=== PATIENT | female | born 1940 | race Caucasian/White ===

== ENCOUNTER 2017-10-26 17:51 | Inpatient (IN) | payer MEDICARE, OTHER ==
[~2017-10-26] VITALS: Ht 167.6 cm; Wt 74.4 kg
[~2017-10-26 17:51] MED LIST: AMLODIPINE; AUGMENTIN 875875 MG PO; ERYTHROMYCIN E3.5 G2; TOBREX5 ML OP; ZOLOFT
[2017-10-26 17:55] VITALS: BP 128/73
[2017-10-26] MEDS ORDERED: ASPIR 8181 MG PO (18:00)
[2017-10-26] MEDS ORDERED: WELCHOL 625 MG625 M1 PO (18:00)
[2017-10-26] MEDS ORDERED: DIOVAN 80 MG TA80 M1 PO (18:00)
[2017-10-26] MEDS ORDERED: PLAVIX 75 MG TA75 M1 PO (18:01)
[2017-10-26] MEDS ORDERED: SERTRALINE HCL50 MG PO (18:01)
[2017-10-26] MEDS ORDERED: LASIX 40 MG TAB40 M2 PO (18:01)
[2017-10-26] MEDS ORDERED: XANAX 0.25 MG0.25 MG PO (18:02)
[2017-10-26] MEDS ORDERED: CARVEDILOL12.5 MG PO (18:02)
[2017-10-26] MEDS ORDERED: NORVASC5 M1 PO (18:03)
[2017-10-26] MEDS ORDERED: LIVALO4 MG PO (18:04)
[2017-10-26 18:13] LABS: HEMATOCRIT 37.9 % (37.0-47.0); HEMOGLOBIN 12.1 gm/dL (12.0-15.0); MCH 27.3 pg (26.0-34.0); MCHC 31.9 g/dL (28.0-37.0); MCV 85.7 fL (80.0-100.0); MPV 9.2 fl. (7.2-11.1); NUCLEATED RBCS 0 /100WBC; PLATELET COUNT* 307 thou/uL (150-400); RBC 4.42 mil/uL (4.20-5.00); RDW-CV 16.8 % (10.5-14.5); WBC 12.6 thou/uL (4.0-11.0)
[2017-10-26 18:20] LABS: CALCIUM 8.5 mg/dL (8.5-10.1); CREATININE 1.5 mg/dL (0.6-1.3); POTASSIUM 3.9 mmol/L (3.5-5.1)
[2017-10-26 18:25] LABS: ALBUMIN 3.6 g/dL (3.4-5.0); TOTAL BILIRUBIN 0.4 mg/dL (<0.1-1.0)
--- NOTE | 2017-10-26 18:25 | NUR ---
DR BUTT IN ROOM AT THIS TIME W/ RN ATTEMPTING CENTRAL LINE.
[2017-10-26 19:04] LABS: HCO3 23.2 mmol/L (22.0-26.0); PCO2 45.8 mmHg (35.0-45.0); PO2 87.3 mmHg (75.0-100.0); pH 7.322 (7.340-7.450)
[2017-10-26 19:51] LABS: ABSOLUTE BASOPHILS 0.1 thou/uL (0.0-0.2); ABSOLUTE EOSINOPHILS 1.6 thou/uL (0.0-0.7); ABSOLUTE LYMPHOCYTES 1.5 thou/uL (0.8-5.3); ABSOLUTE MONOCYTES 0.8 thou/uL (0.0-1.2); ABSOLUTE NEUTROPHILS 8.6 thou/uL (1.6-8.1)
[2017-10-26 19:52] LABS: OVALOCYTES Occasional; PLATELET ESTIMATE ADEQUATE
[2017-10-26 20:50] VITALS: BP 187/98
[2017-10-26 21:09] VITALS: BP 153/81
[2017-10-26 22:00] VITALS: BP 135/68
[2017-10-26 23:00] VITALS: BP 146/85
[2017-10-26 23:30] LABS: URINE BILIRUBIN NEGATIVE (Negative); URINE BLOOD NEGATIVE (Negative); URINE CLARITY CLEAR; URINE COLOR YELLOW; URINE GLUCOSE-RANDOM NEGATIVE (Negative); URINE KETONES NEGATIVE (Negative); URINE LEUKOCYTES-REFLEX NEGATIVE (Negative); URINE NITRITE-REFLEX NEGATIVE (Negative); URINE PROTEIN 2+ (Negative); URINE SPECIFIC GRAVITY >= 1.030 (1.005-1.030); URINE UROBILINOGEN 0.2 E.U./dl (0.2-1.0)
[2017-10-26 23:45] LABS: BACTERIA-REFLEX >30 Many /HPF (None Seen); CELLULAR CASTS 0-3 Few /LPF (None Seen); COARSE GRANULAR CASTS 0-3 Few /LPF (None Seen); FINE GRANULAR CASTS 0-3 Few /LPF (None Seen); HYALINE CASTS 0-3 Few /LPF (None Seen); MUCUS 4-6 Moderate strn/LPF (None Seen); SQUAMOUS 0-3 Few /LPF (0-3); TRANSITIONAL EPITHEL CELL 0-3 Few /LPF (None Seen); URINE RBC 3-10 Few /HPF (0-2); URINE WBC-REFLEX 6-15 Few /HPF (0-5); WBC CLUMPS Few (None Seen)
[2017-10-26 23:46] LABS: AMORPHOUS URATES Few /LPF (None Seen)
[2017-10-27] VITALS (16 sets, daily range): BP systolic 108–158; BP diastolic 45–89
--- NOTE | 2017-10-27 03:22 | NUR ---
PT ADMITTED TO ICU BED 3 AT APPROXIMATELY 2100 DUE TO RESPIRATORY FAILURE. PT ON BIPAP, O2 SAT 99%. PT RECEIVED 2L NS BOLUS ORDERED, IVF INFUSING. PT RECEIVED MORPHINE X2 IN ER FOR CHEST PAIN, INITIAL TROPONIN NEGATIVE. SECOND TROPONIN 0.18, PT RATED CHEST PAIN 4/10 AND DESCRIBED IT "HEAVY". REPEAT EKG OBTAINED AND CALL PLACED TO DR PILLAI. PER HIS REQUEST A PHOTO OF EKG WAS SENT TO HIM FOR HIS REVIEW (WITH ALL PT IDENTIFIERS COVERED). PER DR PILLAI EKG INDICATED ISCHEMIC CHANGES, MULTIPLE ORDERS RECEIVED AND IMPLIMENTED. PRN MORPHINE GIVEN ORDERED. LYNCH CATHETER PLACED PER ORDER. PT NPO BUT FREQUENT ORAL CARE WITH SWABS AND LIP BALM PROVIDED. PT STATES THAT SHE AMBULATED INDEPENDENTLY AT HOME WITHOUT USE OF AIDS, FULL ROM OF ALL EXTREMITIES. PT ROLLS HERSELF FROM SIDE TO SIDE IN BED, EVEN WITH BIPAP MASK ON. PT ORIENTED TO ROOM AND CALL LIGHT, VERBALIZED UNDERSTANDING. CALL LIGHT WITHIN REACH.
[2017-10-27 09:00] LABS: ABSOLUTE EOSINOPHILS 0.2 thou/uL (0.0-0.7); ABSOLUTE LYMPHOCYTES 0.6 thou/uL (0.8-5.3); ABSOLUTE MONOCYTES 0.7 thou/uL (0.0-1.2); ABSOLUTE NEUTROPHILS 8.6 thou/uL (1.6-8.1); BASOPHILS 0.4 %; EOSINOPHILS 2.4 %; HEMATOCRIT 29.7 % (37.0-47.0); LYMPHOCYTES 5.5 %; MCH 27.7 pg (26.0-34.0); MCHC 32.8 g/dL (28.0-37.0); MCV 84.3 fL (80.0-100.0); MONOCYTES 6.8 %; NUCLEATED RBCS 0 /100WBC; POLYS 84.9 %; RBC 3.53 mil/uL (4.20-5.00); RDW-CV 16.5 % (10.5-14.5); WBC 10.2 thou/uL (4.0-11.0)
[2017-10-27 09:07] LABS: HEMOGLOBIN 9.8 gm/dL (12.0-15.0); PLATELET COUNT* 163 thou/uL (150-400)
[2017-10-27 09:08] LABS: CALCIUM 7.9 mg/dL (8.5-10.1); CREATININE 1.3 mg/dL (0.6-1.3); MAGNESIUM 1.8 mg/dL (1.8-2.4); POTASSIUM 3.6 mmol/L (3.5-5.1); TROPONIN-I LEVEL 0.21 ng/mL (<0.06)
[2017-10-27 09:13] LABS: APTT 29.7 Seconds (25.0-31.3); INR 1.1
[2017-10-27 09:28] LABS: CHOLESTEROL 125 mg/dL (<200); HDL CHOLESTEROL 48 mg/dL (>40); LDL CHOLESTEROL 59 mg/dL (<100); SERUM ASSESSMENT Clear; TC:HDL 2.6 Ratio (Not establshd); TRIGLYCERIDE 90 mg/dL (<150); VLDL 18 mg/dL (<40)
--- NOTE | 2017-10-27 10:10 | NUR ---
PT TO RESEARCH GENETICIST AROUND 0950 THIS AM. DAUGHTER AT BEDSIDE. NO OTHER CONCERNS AT THIS TIME. CLWR. WCTM.
--- NOTE | 2017-10-27 10:45 | CON ---
[address] [address] CONSULTATION Name: DIGNAKIMANI Tyler Room: [address] IN M.R.#: [id number] Admission: 10/26/17 Attend Phys: Clary Wetzel MD Discharge: Date of : 40 Report #: [id number] THIS REPORT FOR: //name// CC: Jose Wetzel DATE OF SERVICE: 10/27/2017 CHIEF COMPLAINT: Shortness of breath. HISTORY OF PRESENT ILLNESS: The patient is on BiPAP, unable to provide information. A daughter is present and information taken from the current medical records and [facility]. The patient is a 77-year-old female, who according to the daughter, was having more shortness of breath yesterday, she was brought to the Emergency Room. She was found to have EKG changes and an abnormal elevated troponin level. According to the daughter, the patient is a smoker, little bit less than a pack a day and has done so for several years. She does carry a diagnosis of chronic obstructive airways disease, cannot elicit whether the patient is on oxygen therapy or BiPAP therapy at home. Upon arrival from the EMS, she was found to be in distress. She was placed on BiPAP device, transported to the Emergency Room. REVIEW OF SYSTEMS: System review negative other than what is outlined above. She is not having any nausea, vomiting, headache, numbness, tingling, blurred vision, swelling or ankle edema. ALLERGIES: She is ALLERGIC to STATIN DRUGS. PAST MEDICAL HISTORY: Significant for COPD and congestive heart failure. In addition, her other past medical problems consist of coronary artery disease, chronic kidney disease, cholecystectomy, anxiety, depression, history of pulmonary nodules. She has had colon resection and a hysterectomy in the past. MEDICATIONS PRIOR TO ADMISSION: Include carvedilol, amlodipine, Livalo, Zoloft, Lasix, Welchol, aspirin and Diovan. She also uses Apresoline on a p.r.n. basis. FAMILY HISTORY: Noncontributory. SOCIAL HISTORY: She is a smoker as outlined above. PHYSICAL EXAMINATION: VITAL SIGNS: Blood pressure 141/74, respiratory rate 19, pulse rate 82 and regular, temperature 97.5 degrees. Her weight is [address] [place] [address] CONSULTATION Name: KIMANI SAWYER Room: [address]#: [id number] Admission: 10/26/17 Attend Phys: Clary Wetzel MD Discharge: Date of : 40 Report #: [id number] GENERAL APPEARANCE: She is on BiPAP, slightly uncomfortable more and likely as a result of the BiPAP device. She is not in any distress otherwise. Respirations do not appear labored. She is not using accessory muscles. HEAD: Atraumatic. EYES: Pupils are round, equal, reactive. ORAL CAVITY: Moist. No lesions. NECK: No adenopathy. CHEST: Reveals diminished breath sounds throughout, greater on the right than the left. She has crackles in the right base. No rhonchi or wheezes. CARDIOVASCULAR: Regular rhythm, distant heart tones. ABDOMEN: Soft. EXTREMITIES: Negative for edema. No evidence of clubbing. SKIN: Warm and dry. LYMPHATICS: Negative. NEUROLOGIC: Moves all 4 extremities spontaneously. LABORATORY DATA: Sodium 144, potassium 3.6, chloride 110, CO2 of 26, BUN of 18, creatinine 1.3, eGFR of 40. Troponin is 0.21. Her admission troponin was less than 0.06, it has climbed to 0.22 and then 0.21. Hemoglobin and hematocrit of 9.8 and 30 with a white count of 10,000. Arterial blood gas obtained on admission in the Emergency Room revealed a pH of 7.32, pCO2 of 46, pO2 of 87, bicarbonate of 23 while on BiPAP of 16/10, 100% FIO2. Chest x-ray reveals a right lower lobe infiltrate. ASSESSMENT: 1. Acute respiratory failure with hypoxemia. 2. Coronary artery disease. 3. Chest pain. 4. Elevated troponin. 5. Exacerbation of chronic obstructive pulmonary disease. 6. Pneumonia. RECOMMENDATION: The patient is scheduled to undergo cardiac catheterization. There is no reason I see that she could not undergo that. I would continue with aspiration precautions, antibiotic therapy, aerosol treatments. Nicoderm patch may be warranted in view of her smoking history. She has been started on vancomycin and Zosyn as antibiotic coverage. Once patient returns back from the cardiac packing house laborer, we will proceed with rechecking the patient's arterial blood gas while on a nasal cannula. Followup x-ray in the a.m. Urine for antigen studies will be obtained. In addition to the above, she will undergo a respiratory viral panel as well. <ELECTRONICALLY SIGNED> By: Omero Enriquez MD 10/27/17 1045 0955 1027Aljose Enriquez MD /nt
[2017-10-27 11:11] LABS: BE -2.9 mmol/L (-2 to +3); HCO3 22.8 mmol/L (22.0-26.0); PCO2 43.2 mmHg (35.0-45.0); PO2 90.4 mmHg (75.0-100.0)
--- NOTE | 2017-10-27 12:00 | EKG ---
[place] [address] ELECTROCARDIOGRAM REPORT Name: KIMANI SAWYER Room: [address] ADM IN [facility].#: [id number] Admission: 10/26/17 Attend Phys: Clary Wetzel MD Discharge: Date of : 40 Report #: [id number] THIS REPORT FOR: //name// [facility] ED Test Date: 2017-10-26 Test Time: 17:56:29 Pat Name: KIMANI SAWYER Department: Room: [facility] Gender: F Medical Psychotherapist: [facility] : 1940 Requested By: Eufemia Lucio Order Number: [id number] MD: Drew Alvarez Measurements Intervals [place] Rate: 116 P: -88 [place]: 109 QRS: 59 QRSD: 118 T: 230 QT: 350 QTc: 487 Interpretive Statements Sinus or ectopic atrial tachycardia septal q waves ST depression, consider ischemia, diffuse lds No previous ECG available for comparison Electronically Signed On 10-27-2017 12:00:31 SPECIALIST FIELD ENGINEER by Drew Alvarez [email or web address] <ELECTRONICALLY SIGNED> By: Drew Alvarez MD, [facility] 10/27/17 [facility] 175 55 Drew Alvarez MD, [facility] /EPI
--- NOTE | 2017-10-27 12:07 | EKG ---
[place] [address] ELECTROCARDIOGRAM REPORT Name: KIMANI SAWYER Room: [address] ADM IN M.R.#: [id number] Admission: 10/26/17 Attend Phys: Clary Wetzel MD Discharge: Date of : 40 Report #: [id number] THIS REPORT FOR: //name// [facility] Test Date: 2017-10-26 Test Time: 22:31:42 Pat Name: KIMANI SAWYER Department: Room: [address] Gender: F Principal Examiner: Adrián CASTILLO RN : 1940 Requested By: Drew Alvarez Order Number: [id number] Nikita MD: Drew Alvarez Measurements Intervals [place] Rate: 84 P: 0 [place]: 121 QRS: 46 QRSD: 111 T: 217 QT: 389 QTc: 460 Interpretive Statements Sinus rhythm Low voltage, extremity leads ST depression, consider ischemia, lateral lds Minimal ST elevation, anterior leads Electronically Signed On 10-27-2017 12:07:13 CAN CARRIER by Drew Alvarez [email or web address] <ELECTRONICALLY SIGNED> By: Drew Alvarez MD, [facility] 10/27/17 1207 30 30 Drew Alvarez MD, FAC /EPI
--- NOTE | 2017-10-27 12:09 | NUR ---
PT BACK FROM CLOTH BLEACHING SUPERVISOR AROUND 1200. REPORT RECEIVED AT THIS TIME. KELBY. GENEVA.
--- NOTE | 2017-10-27 12:09 | EKG ---
[place] [address] ELECTROCARDIOGRAM REPORT Name: KIMANI SAWYER Room: [address] ADM IN .R.#: [id number] Admission: 10/26/17 Attend Phys: Clary Wetzel MD Discharge: Date of : 40 Report #: [id number] THIS REPORT FOR: //name// [facility] Test Date: 2017-10-27 Test Time: 08:17:36 Pat Name: KIMANI SAWYER Department: Room: [address] Gender: F Orchard Worker: : 1940 Requested By: Drew Alvarez Order Number: [id number] Nikita MD: Drew Alvarez Measurements Intervals [place] Rate: 85 P: -12 [place]: 113 QRS: 35 QRSD: 117 T: 229 QT: 400 QTc: 476 Interpretive Statements Sinus rhythm Borderline short [place] interval Borderline low voltage, extremity leads Repol abnrm, severe global ischemia (LM/MVD) Electronically Signed On 10-27-2017 12:09:21 FIELD IDENTIFICATION SPECIALIST by Drew Alvarez [email or web address] <ELECTRONICALLY SIGNED> By: Drew Alvarez MD, [facility] 10/27/17 1209 6 6 Drew Alvarez MD, [facility] /EPI
--- NOTE | 2017-10-27 12:44 | NUR ---
ATTEMPTED TO REMOVE BIPAP AND PLACE PT ON 4L O2/NC. PT DID NOT TOLERATE. VERY SOA WITH DESATURATION NOTED. TITRATED OXYGEN UP TO MAINTAIN SATS WITHOUT SUCCESS. PLACED PT BACK ON BIPAP. PRN IV ANXIOLYTIC GIVEN TO PROMOTE COMPLIANCE WITH BIPAP.
--- NOTE | 2017-10-27 14:19 | NUR ---
PT NOTED TO CHANGE TELE RHYTHMS AROUND 1300. EKG OBTAINED. CARDIOLOGY NURSE AND DR. PILLAI CONSULTED REGARDING RHYTHM CHANGES. DR. PILLAI CONFIRMED RHYTHM BIGEMENY W/ PAC'S. ALL AIR REMOVED FROM RT RADIAL CLOSURE DEVICE. PT HAS NO SIGNS BLEEDING AT THIS TIME. CLWR. WCTM.
--- NOTE | 2017-10-27 16:39 | EKG ---
[place] [address] ELECTROCARDIOGRAM REPORT Name: KIMANI SAWYER Room: [address] ADM IN M.R.#: [id number] Admission: 10/26/17 Attend Phys: Clary Wetzel MD Discharge: Date of : 40 Report #: [id number] THIS REPORT FOR: //name// [facility] Test Date: 2017-10-27 Test Time: 13:05:26 Pat Name: KIMANI SAWYER Department: Room: [address] Gender: F Curator Of Education: UNK : 1940 Requested By: Drew Alvarez Order Number: [id number] Nikita MD: Drew Alvarez Measurements Intervals [place] Rate: 80 P: 83 [place]: 102 QRS: 37 QRSD: 109 T: 165 QT: 462 QTc: 533 Interpretive Statements Sinus rhythm Atrial premature complexes in couplets Short VA interval ST depr, consider ischemia, anterolateral lds Minimal ST elevation, anterior leads Compared to ECG 10/27/2017 08:17:36 Atrial premature complex(es) now present Possible ischemia still present Electronically Signed On 10-27-2017 16:39:42 FINANCIAL SERVICES INTERNSHIP by Drew Alvarez [email or web address] <ELECTRONICALLY SIGNED> By: Drew Alvarez MD, [facility] 10/27/17 1639 1305 1305 Drew Alvarez MD, [facility] /EPI
--- NOTE | 2017-10-27 17:02 | NUR ---
PT SOMEWHAT PROGRESSING TOWARDS GOALS. PT TOLERATED OFF BIPAP FOR ABOUT HALF AN HOUR THIS EVENING. PT WAS PLACED ON 6L OXYGEN/NC AND SATS REMAINED IN HIGH 80'S%. DAUGHTER AT BEDSIDE STATES THIS IS CLOSE TO BASELINE FOR HER. TELE REMAINS SA, OCCASIONAL BIGEMENY, PAC'S, RATE IN THE 70'S. ONE STENT PLACED THIS SHIFT IN INDUSTRIAL RETROFIT DESIGNER. RT RADIAL ACCESS SITE HAS NO BLEEDING NOTED. NO OTHER CONCERNS AT THIS TIME. CLWR. WCTM.
--- NOTE | 2017-10-27 17:45 | CARD ---
[address] [address] CARDIAC CATH REPORT Name: KIMANI SAWYER Room: [address] IN .R.#: [id number] Admission: 10/26/17 Attend Phys: Clary Wetzel MD Discharge: Date of : 40 Report #: [id number] THIS REPORT FOR: //name// APPROVED REPORT Patient Details Patient Status: In-Patient Room #: The patient is a 77 year-old female Event Personnel Drew Alvarez Stroke Coordinator, Nina Carey RN RN, Javier Hanley (R) Jeff Ferrari James Monitor Indication Unstable angina Risk Factors Tobacco History () Admission/Lab Medications/Medications given during procedure Heparin Low Molecular Weight Procedure Narrative The patient was brought electively to the Cardiac Catheterization Laboratory and was prepped and draped in a sterile manner. The right wrist was infiltrated with 1% Lidocaine subcutaneous anesthesia. A Slender Glidesheath sheath was inserted into the right radial artery. Coronary angiography was performed using coronary diagnostic catheters. The right coronary system was accessed and visualized with a JR4 5fr catheter. The left coronary system was accessed and visualized with a JL 3.5 5fr catheter. The left ventricle was accessed and visualized with a PC: Angled Pig 5fr catheter. Left ventricular/Aortic Valve gradient assessed via catheter pullback. Left ventriculogram was performed in SAUZO projection. Closure device was deployed with a 6 Fr Vasc-Band Reg 24cm. The patient tolerated the procedure well and there were no complications associated with the procedure. There was no hematoma. Intraoperative Conscious Sedation Sedation start time: 1052 Case end Time: 1135 Fluoro Time: 8.3 minutes Dose: DAP 10970 cGycm2 1569 mGy Contrast Type and Amount: Visipaque [address] [place] [address] CARDIAC CATH REPORT Name: DIGNAKIMANI Tyler Room: [address] IN [facility]#: [id number] Admission: 10/26/17 Attend Phys: Clary Wetzel MD Discharge: Date of : 40 Report #: [id number] Coronary Angiography The patient's coronary anatomy is right dominant. [place] Artery Percent Stenosis vessels appeared moderately calcified Diagnostic Cath Left Main 0% stenosis LAD 30% proximal and 40% distal stenosis Circumflex 40% proximal stenosis Right Coronary 90% proximal stenosis Left Ventriculography The left ventricle is normal in size with normal contractility. The left ventricular ejection fraction is estimated to be 55-60%. Left ventricular wall motion abnormalities are not present. There is no mitral insufficiency. Hemodynamics The aortic pressure is 119/63 mmHg with a mean of 88 mmHg. The left ventricular pressure is 102/23 mmHg with a mean of mmHg. The left ventricular end diastolic pressure is 26 mmHg. There was no gradient across the aortic valve upon pullback. Pullback from the left ventricle to the aorta revealed no gradient across the aortic valve. PCI Technique Lesion Anticoagulation was achieved with Lovenox. patient had been on asa and plavix chronically Patient was preloaded with Lovenox IV 80 mg. Percutaneous coronary intervention was performed on the proximal right coronary artery. The lesion stenosis prior to intervention was 90% with BRAEDEN 3 flow. A 6FR JCR 4 100CM Guide Catheter was used to engage the rca ostium. A IG: BMW 190cm Interventional Guidewire was used to cross the lesion. BALLOON DILATION A Balloon catheter Trek RX 2.5 X 8 was inserted and inflated up to 16.00atm for 13seconds. Repeat angiography revealed the following post-dilatation results: 60% stenosis. STENT DEPLOYMENT A drug-eluting stent Xience Alpine RX 3.5X15 was inserted and inflated up to 10.00atm for 17seconds. Repeat angiography revealed the following post-stent deployment results: 0% stenosis. Additional Inflation: 12.00atm for 14seconds. Additional Inflation: 15.00atm for 22seconds. 15 andrzej for 22 sec 15 andrzej for 26 [place] [address] CARDIAC CATH REPORT Name: KIMANI SAWYER Room: [address] IN ..#: [id number] Admission: 10/26/17 Attend Phys: Clary Wetzel MD Discharge: Date of : 40 Report #: [id number] Final angiography reveals 0 % stenosis with BRAEDEN 3 flow. COMMENTS a farhat bmw wire was required to advance the stent to the area of stenosis because of vessel toruosity and calcification Conclusion 1. 90% stenosis noted in the proximal rca 2. successful placement of a single drug eluting stent in the proximal rca Recommendations Smoking Cessation Cardiac Rehabilitation Referral Aggressive Medical Therapy <ELECTRONICALLY SIGNED> By: Drew Alvarez MD, [facility] 10/27/17 1745 174 1745Drew Alvarez MD, [facility] /INF
[2017-10-28] VITALS (10 sets, daily range): BP systolic 95–1444; BP diastolic 38–88
[2017-10-28 03:52] LABS: BE -5.8 mmol/L (-2 to +3); HCO3 19.9 mmol/L (22.0-26.0); PCO2 40.1 mmHg (35.0-45.0); PO2 82.9 mmHg (75.0-100.0); pH 7.314 (7.340-7.450)
[2017-10-28 04:03] LABS: HEMATOCRIT 26.2 % (37.0-47.0); HEMOGLOBIN 8.6 gm/dL (12.0-15.0); MCH 27.9 pg (26.0-34.0); MCHC 32.9 g/dL (28.0-37.0); RBC 3.08 mil/uL (4.20-5.00); RDW-CV 16.5 % (10.5-14.5); WBC 9.2 thou/uL (4.0-11.0)
[2017-10-28 04:40] LABS: CALCIUM 7.9 mg/dL (8.5-10.1); CREATININE 1.4 mg/dL (0.6-1.3); MAGNESIUM 1.7 mg/dL (1.8-2.4); POTASSIUM 3.5 mmol/L (3.5-5.1)
[2017-10-28 05:19] LABS: TROPONIN-I LEVEL 0.85 ng/mL (<0.06)
--- NOTE | 2017-10-28 06:00 | NUR ---
ASSUMED CARE OF PT AT 1900 PT ALERT AND ORIENTED VSS. PT DENIED AN C/O PAIN. NSR WITH PAC'S ON THE MONITOR. PT CONTINUES ON BIPAP ONLY REMOVED AND REPLACED WITH 6 L NC FOR MEALS OR PO MED ADMINISTRATION. AT 0130 PT NOTED TO BE TACHYCARDIC PT RANGING FROM THE 120'S TO 150'S PT ANXIOUS BUT DENIED CHEST PAIN GAVE PRN ATIVAN ALL OTHER VSS EKG SHOWED AFIB AND BBB NOTIFIED DR FAUST OBTAINED ORDERS FOR IVF BOLUS AND DIGOXIN PTS HR CAME DOWN WITHIN AN HOUR OF ADMINISTRATION. WILL CONTINUE PLAN OF CARE
--- NOTE | 2017-10-28 10:34 | NUR ---
SPOKE WITH PT. SHE LIVES AT HOME WITH HER DTR. SHE SAID SHE IS ABLE TO BATHE AND DRESS HERSELF, GETS AROUND THE HOUSE OKAY. DTR DOES THE COOKING, CLEANING, ETC. PT HAS HOME O2 AND NEBULIZER, SHE DOESN'T REMEMBER THE NAME OF THE COMPANY. PT TO BE TRANSFERRED OUT OF ICU TODAY. DISCUSSED ROLE OF CASE MGT, WILL CONTINUE TO FOLLOW.
--- NOTE | 2017-10-28 12:49 | NUR ---
PATIENT TRANSFERRED FROM ICU TO ROOM 318. AGREE WITH AM ASSESSMENT, CARDIAC MONITIOR IN PLACE. 15L HIGH FLOW [address] IV ABX TO LEFT CENTRAL LINE. DAUGHTER AT BEDSIDE. INCONTINENT OF URINE AND STOOL. BED ALARM ON FOR PATIENT SAFETY. CALL LIGHT WITHIN REACH, WILL CONTINUE TO MONITOR.
--- NOTE | 2017-10-28 12:58 | EKG ---
[place] [address] ELECTROCARDIOGRAM REPORT Name: KIMANI SAWYER Room: [address] ADM IN M.R.#: [id number] Admission: 10/26/17 Attend Phys: Clary Wetzel MD Discharge: Date of : 40 Report #: [id number] THIS REPORT FOR: //name// [facility] Test Date: 2017-10-28 Test Time: 01:35:47 Pat Name: KIMANI SAWYER Department: Room: [facility] Gender: F Manager Utilities: MR : 1940 Requested By: Drew Alvarez Order Number: [id number] Nikita MD: Drew Alvarez Measurements Intervals [place] Rate: 135 P: [place]: QRS: 107 QRSD: 156 T: -60 QT: 388 QTc: 582 Interpretive Statements Atrial fibrillation Right bundle branch block Anteroseptal infarct, old ST depression, consider ischemia, diffuse lds Compared to ECG 10/27/2017 13:05:26 Right bundle-branch block now present Myocardial infarct finding now present Sinus rhythm no longer present ST (T wave) deviation still present Possible ischemia still present Electronically Signed On 10-28-2017 12:58:30 CELL BUILDER by Drew Alvarez [email or web address] <ELECTRONICALLY SIGNED> By: Drew Alvarez MD, [facility] 10/28/17 1258 0135 0135 Drew Alvarez MD, FAC /EPI
--- NOTE | 2017-10-28 13:05 | EKG ---
[place] [address] ELECTROCARDIOGRAM REPORT Name: KIMANI SAWYER Room: [address] ADM IN M.R.#: [id number] Admission: 10/26/17 Attend Phys: Clary Wetzel MD Discharge: Date of : 40 Report #: [id number] THIS REPORT FOR: //name// [facility] Test Date: 2017-10-28 Test Time: 12:09:58 Pat Name: KIMANI SAWYER Department: Room: [address] Gender: F Slide Forming Machine Tender: : 1940 Requested By: Darius Queen Order Number: [id number] Nikita MD: Drew Alvarez Measurements Intervals [place] Rate: 91 P: 60 RI: 192 QRS: 22 QRSD: 114 T: 203 QT: 325 QTc: 400 Interpretive Statements Sinus rhythm Repol abnrm, severe global ischemia (LM/MVD) Baseline wander in lead(s) V2,V5,V6 Compared to ECG 10/28/2017 01:35 Atrial fibrillation no longer present Right bundle-branch block no longer present Myocardial infarct finding no longer present Possible ischemia still present Electronically Signed On 10-28-2017 13:05:40 FINISHING TRIMMER by Drew Alvarez [email or web address] <ELECTRONICALLY SIGNED> By: Drew Alvarez MD, [facility]ACC 10/28/17 1305 1209 1209 Drew Alvarez MD, FAC /EPI
[2017-10-29 03:34] VITALS: BP 170/79
[2017-10-29 04:47] LABS: HEMATOCRIT 25.3 % (37.0-47.0); HEMOGLOBIN 8.4 gm/dL (12.0-15.0); MCH 27.8 pg (26.0-34.0); MCV 84.2 fL (80.0-100.0); MPV 9.7 fl. (7.2-11.1); RDW-CV 16.7 % (10.5-14.5); WBC 8.3 thou/uL (4.0-11.0)
--- NOTE | 2017-10-29 05:02 | NUR ---
PT SLEPT SOUNDLY DURING THE NIGHT, PLEASANT, ON AT 10L/HF NC, UP ASSIST TO BSC, SCD'S ON, IV ANTIBIOTICS GIVEN, STRESS INCONTINENCE, CALL LIGHT IN REACH, BED ALARM ON FOR SAFETY, WILL CONTINUE TO MONITOR
[2017-10-29 05:15] LABS: % SATURATION 4 % (20-39); IRON 12 ug/dL (50-175)
[2017-10-29 06:31] LABS: CALCIUM 8.6 mg/dL (8.5-10.1); CREATININE 1.3 mg/dL (0.6-1.3); MAGNESIUM 1.8 mg/dL (1.8-2.4); POTASSIUM 3.2 mmol/L (3.5-5.1)
[2017-10-29 07:45] VITALS: BP 166/94
[2017-10-29 09:52] VITALS: BP 166/94
--- NOTE | 2017-10-29 10:38 | EKG ---
[place] [address] ELECTROCARDIOGRAM REPORT Name: KIMANI SAWYER Room: [address] ADM IN .R.#: [id number] Admission: 10/26/17 Attend Phys: Clary Wetzel MD Discharge: Date of : 40 Report #: [id number] THIS REPORT FOR: //name// [facility] Test Date: 2017-10-29 Test Time: 08:39:17 Pat Name: KIMANI SAWYER Department: Room: [facility] Gender: F Supervisor Composing Room: : 1940 Requested By: Drew Alvarez Order Number: [id number] Nikita MD: Drew Alvarez Measurements Intervals [place] Rate: 90 P: 0 MS: 117 QRS: 17 QRSD: 113 T: 183 QT: 329 QTc: 403 Interpretive Statements Sinus rhythm Borderline short MS interval ST depr, consider ischemia, anterolateral lds Minimal ST elevation, anterior leads Baseline wander in lead(s) II,III,aVF Compared to ECG 10/28/2017 12:09:58 Possible ischemia still present Electronically Signed On 10-29-2017 10:38:37 CRAP GAME BOX PERSON by Drew Alvarez [email or web address] <ELECTRONICALLY SIGNED> By: Drew Alvarez MD, FAC 10/29/17 1038 0839 0839 Drew Alvarez MD, [facility] /EPI
--- NOTE | 2017-10-29 16:11 | NUR ---
PATIENT A&OX4, FORGETFUL AT TIMES. ON 8L HIGHFLOW NC, TITRATING DOWN TO SATS>92%. UP WITH ASSISTX1 TO BS, STEADY BUT SHUFFLE GAIT. NO C/O PAIN/N/V. INCONTINENT OF BOWEL, ABLE TO CALL OUT APPROPRIATELY, STRESS INCONTINENCE. NO OTHER CONCERNS AT THIS TIME. APPROPRIATE AND COOPORATIVE WITH CARE.
[2017-10-29 16:53] VITALS: BP 172/83
--- NOTE | 2017-10-29 18:15 | CON ---
[address] [address] CONSULTATION Name: KIMANI SAWYER Room: [address] IN .R.#: [id number] Admission: 10/26/17 Attend Phys: Clary Wetzel MD Discharge: Date of : 40 Report #: [id number] THIS REPORT FOR: //name// CC: Jose Wetzel DATE OF SERVICE: 10/27/2017 HISTORY OF PRESENT ILLNESS: The patient is a 77-year-old single white female who was last seen in the hospital after she complained of chest pain. The patient has a primary care physician in [facility], although she cannot recall the name at this time. She also has a automotive parts manager, although she cannot recall his name as well. She has a history of COPD and used to smoke a pack of cigarettes a day. She now smokes about a half pack a day. She is not very active. She is on chronic oxygen, uses nebulizer at home. She has not been hospitalized recently. She states she had a stress test years ago in [place]. She was told at that time there is no evidence of heart disease. She did well until recently, she had increasing shortness of breath. She denied any cough, edema. She has noticed some chills. She has also had intermittent heaviness in chest. She denies it radiated into her arm or jaw. She denied any associated diaphoresis or nausea. She has had no bleeding. She denied any recent syncope or palpitations. She came to the Emergency Room last night, was admitted there. PAST MEDICAL HISTORY: She has had a tonsillectomy, cholecystectomy, hysterectomy, hemicolectomy for benign disease. She has a history of hypertension, hyperlipidemia. No history of diabetes. MEDICATIONS: Consist of Xanax, amlodipine, aspirin, carvedilol, Plavix, WelChol, furosemide, Livalo, Zoloft, Diovan. SHE WAS INTOLERANT OF OTHER STATIN DRUGS WHICH LED TO EDEMA. SOCIAL HISTORY: She is , lives by herself here in [place]. Smokes several cigarettes a day. No alcohol abuse. FAMILY HISTORY: Negative for heart disease. REVIEW OF SYSTEMS: She denies history of stroke, peptic ulcer disease, liver disease, kidney disease or cancer. She did see a psychiatrist in the past. PHYSICAL EXAMINATION: GENERAL: Revealed an elderly female, lying in bed. She appeared in no acute distress. VITAL SIGNS: She had a blood pressure of 150/80, pulse is 80, she is afebrile. HEENT: She was anicteric, conjunctivae were pink. Mucous membranes appear dry. NECK: Veins nondistended. [place] [address] CONSULTATION Name: KIMANI SAWYER Room: [address]#: [id number] Admission: 10/26/17 Attend Phys: Clary Wetzel MD Discharge: Date of : 40 Report #: [id number] CHEST: Clear to auscultation. CARDIOVASCULAR: Regular rate and rhythm. No significant murmur. ABDOMEN: Soft, nontender. EXTREMITIES: Had no edema. Dorsalis pedis pulse 3+ bilaterally. SKIN: Cool and dry. NEUROLOGIC: Nonfocal. LYMPH: No adenopathy. MUSCULOSKELETAL: No joint effusion. DIAGNOSTIC DATA: Her ECG on admission last night showed what appeared to be sinus tachycardia with ST segment depression that was downsloping suggestive of ischemia. There was a minimal ST segment elevation of 0.5 mm in V1 and V2 with possible septal Q-waves. Today, her ECG shows a sinus rhythm, again ST-segment depression downsloping suggestive of ischemia in leads I, II, V4, V5, V6. Workup in the Emergency Room yesterday, she had a portable chest x-ray that showed normal heart size, possible infiltrate in the right lung base. LABORATORY DATA: Sodium 140, BUN of 18, creatinine 1.5, glucose is 267. Troponin initially 0.06, this morning is 0.22. Lipid profile was pending. White blood cell count 12.6, hemoglobin 12.1. Urinalysis is 2+ protein, negative blood, negative leukocytes. ABG: PH 7.32, pCO2 of 45, pO2 of 87. IMPRESSION AND RECOMMENDATIONS: 1. Unstable angina. Recommend cardiac catheterization. 2. Chronic obstructive pulmonary disease. 3. Possible pneumonia. 4. Tobacco abuse. 5. Hypertension. The patient has been on a calcium mayi, beta mayi. 6. Hyperlipidemia. The patient is on a statin drug and WelChol. <ELECTRONICALLY SIGNED> By: Drew Alvarez MD, [facility] 10/29/17 1815 0826 [id number] Alvarez MD, FAC /nt
[2017-10-29 20:00] VITALS: BP 168/78
[2017-10-29 23:25] VITALS: BP 161/55
[2017-10-30 03:53] VITALS: BP 155/79
--- NOTE | 2017-10-30 05:54 | NUR ---
ASSUMED PATIETN CARE AT 1900. PATIENT ALERT AND ORIENTED TIMES FOUR WITH SOME FORGETFULNESS, DX OF DEMENTIA. ABLE TO WEAN O2 DOWN THROUGH THE NIGHT. CURRENTLY AT 6L VIA NC. O2 SAT AT 8L WAS 100%. CENTRAL LINE PATENT TO FLUSHES AND DRAWS. INCONTINENT OF BOWEL AND BLADDER. BOWEL MORE SO WHEN SHE COUGHS. BRUISING NOTED ON SKIN IN SEVERAL PLACES. DRESSING TO RIGHT WRIST C/D/I. NO COMPLAINTS OF PAIN OR DISCOMFORT NOTED. TOOL AND DIE INSPECTOR AND HOURLY ROUNDING COMPLETED DOCUMENTED. FALL RISK PRECAUTIONS INPLACE.
[2017-10-30 07:20] VITALS: BP 180/92
[2017-10-30 12:00] VITALS: BP 157/81
--- NOTE | 2017-10-30 14:45 | NUR ---
CONTINUE TO FOLLOW, ORDER RECEIVED TO DISCUSS SNF. CALL PLACED TO PT'S DTR, PT IS VERY [place] AND HAS SOME DEMENTIA PER NURSE. SPOKE WITH RAMIREZ, SHE STATES THAT PT LIVES ALONE. CALL TO PRECERT TO UPDATE DTR'S ADDRESS IN [place]. RAMIREZ STATES THAT PT USUALLY IS FAIRLY INDEPENDENT, DRIVES, RUNS HER OWN ERRANDS AND SHOPS, COOKS, ETC. PT USES O2 PRN AND SOMETIMES AT NIGHT THRU [place]. ALSO HAS NEBULIZER. PT HAS NOT HAD HH OR BEEN TO SNF. DISCUSSED SNF AND RAMIREZ STATED THAT THEY ARE INTERESTED IN THAT. OPTIONS OFFERED AND SHE WOULD LIKE TO HAVE [facility], [facility] CHECKED ON WEDNESDAY. AWAIT THERAPY EVALS ALSO. RAMIREZ STATED PT STILL SMOKES AND HAS FOR '64 YRS.' RAMIREZ IS DPOA. WILL FOLLOW
--- NOTE | 2017-10-30 16:03 | NUR ---
PATIENT A&OX4, FORGETFUL HX OF DEMENTIA. ON 6L HIGH FLOW O2 NC. LEFT CHEST SUBCLAVIAN TRIPPLE LUMEN FLUSHES AND DRAWS FINE. UP WITH ASSISTX1 WITH WALKER TO BEDSIDE CAMODE. NO C/O PAIN/N/V. NO OTHER CONCERNS AT THIS TIME. APPROPRIATE AND COOPORATIVE WITH CARE.
[2017-10-30 23:31] VITALS: BP 118/59
[2017-10-31 03:21] VITALS: BP 151/78
--- NOTE | 2017-10-31 05:21 | NUR ---
PATIENT SLEPT MOST OF THE NIGHT. PATIENT REMAINS ON OXYGEN AT 5L HFNC SATTING ABOUT 95% PATIENT CONTINUES TO BE INCONTINENT OF URINE. PATIENT WAS IN AFIB MOST OF THE NIGHT BUT IS SINUS RYTHYM WITH PVC'S THIS MORNING. WILL CONTINUE TO MONITOR.
[2017-10-31 07:14] LABS: CALCIUM 8.8 mg/dL (8.5-10.1); CREATININE 1.3 mg/dL (0.6-1.3); MAGNESIUM 1.7 mg/dL (1.8-2.4); POTASSIUM 3.4 mmol/L (3.5-5.1)
[2017-10-31 07:30] VITALS: BP 170/91
--- NOTE | 2017-10-31 16:05 | NUR ---
PATIENT A&OX4, FORGETFUL. HX OF DEMENTIA. ON 6L HIGH FLOW NC, LEFT CHEST SUBCLAVIAN, TRIPPLE LUMEN, FLUSHES AND DRAWS WELL. UP WITH ASSISTX1 TO BEDSIDE CAMODE. STEADY GIAT, WITH SHUFFLE WALK. C/O PAIN IN LEFT LEG, RELIEF WITH MEDICATION. INCONTINENT OF B&B, FREQUENTLY. NO OTHER CONCERNS AT THIS TIME. APPROPRIATE AND COOPORATIVE WITH CARE.
[2017-10-31 16:27] VITALS: BP 140/73
[2017-10-31 20:17] VITALS: BP 149/82
[2017-11-01 00:04] VITALS: BP 151/76
[2017-11-01 03:38] VITALS: BP 143/71
[2017-11-01 04:10] LABS: CALCIUM 8.9 mg/dL (8.5-10.1); CREATININE 1.8 mg/dL (0.6-1.3); MAGNESIUM 1.7 mg/dL (1.8-2.4); POTASSIUM 4.1 mmol/L (3.5-5.1)
[2017-11-01 04:44] LABS: HEMATOCRIT 25.8 % (37.0-47.0); HEMOGLOBIN 8.6 gm/dL (12.0-15.0); MCH 27.8 pg (26.0-34.0); MCHC 33.3 g/dL (28.0-37.0); MCV 83.4 fL (80.0-100.0); MPV 9.2 fl. (7.2-11.1); RBC 3.1 mil/uL (4.20-5.00); RDW-CV 16.7 % (10.5-14.5); WBC 10.9 thou/uL (4.0-11.0)
--- NOTE | 2017-11-01 05:45 | NUR ---
PATIENT SLEPT PART OF THE NIGHT. PATIENT REMAINS ON OXYGEN AT 5L PER HFNC. PATIENT REMAINS SR WITH PVC'S ON THE MONITOR. PATIENT IS POSSIBLY GOING SKILLED TODAY OR TOMORROW. WILL CONTINUE TO MONITOR.
[2017-11-01 08:25] VITALS: BP 149/74
--- NOTE | 2017-11-01 10:49 | NUR ---
PHILIP sent referrals to [facility], [facility], and [facility]. PHILIP received calls from [facility] and [facility] both accepting pt for SNF today. PHILIP called pt dtr Cyn who did not answer so PHILIP left detailed message requesting call back to discuss pt dc planning for today.
[2017-11-01 11:19] VITALS: BP 166/94
[2017-11-01 12:00] VITALS: BP 121/64
[2017-11-01] MEDS ORDERED: NITROGLYCERIN0.4 MG SUBLING (12:38)
[2017-11-01] MEDS ORDERED: PULMICORT0.5 MG/22 INH (12:39)
[2017-11-01] MEDS ORDERED: PREDNISONE 10 M10 MG PO (12:40)
[2017-11-01] MEDS ORDERED: LEVAQUIN 750 M750 MG PO (12:41)
[2017-11-01] MEDS ORDERED: DUONEB 2.5-0.5 M3 ML INH (13:02)
[2017-11-01 13:49] VITALS: BP 166/94
--- NOTE | 2017-11-01 16:18 | NUR ---
PATIENT'S CENTRAL LINE TO LEFT CHEST DISCONTINUED PER ORDERS. CATHETER TIP INTACT AND PRESSURE HELD FOR 5 MINUTES. DRESSING APPLIED. SINK MAKER REMOVED. PATIENT ASSISTED IN GETTING DRESSED. REPORT CALLED TO DEL AT [facility], [place]. DAUGHTER AT BEDSIDE. AWAITING WHEELCHAIR VAN FOR TRANSPORT AT THIS TIME.
--- NOTE | 2017-12-06 11:45 | EKG ---
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 : 1940 Requested By: Nika Case Order Number: [id number] Reading MD: Measurements Intervals [place] Rate: 72 P: -37 OR: 133 QRS: 19 QRSD: 116 T: 172 QT: 415 QTc: 455 Interpretive Statements Sinus rhythm Supraventricular bigeminy LVH with secondary repolarization abnormality Baseline wander in lead(s) I,III,aVL Compared to ECG 11/22/2017 11:36:57 Atrial premature complex(es) now present Left ventricular hypertrophy now present Early repolarization now present Atrial flutter no longer present Ventricular premature complex(es) no longer present ST (T wave) deviation no longer present [email or web address] By: [id number] Tim Monet MD, [facility] /EPI
== END 2017-11-01 16:41 | DRG 853 ==
LOC: M.ERS 17:51 → M.3W 19:04 → M.TBA-ER 19:04 → M.ICU 19:04 → M.3W 10-28 11:02
PROVIDERS: Internal Medicine; Internal Medicine Cardiovascular Disease; Internal Medicine Pulmonary Disease; Personal Emergency Response Attendant; ADMIT Internal Medicine
PROC: 5A09457 Assistance with Respiratory Ventilation, 24-96 Consecutive Hours, Continuous Positive Airway Pressure (ICD-10-PCS; principal; 2017-10-26)
PROC: 02HV33Z Insertion of Infusion Device into Superior Vena Cava, Percutaneous Approach (ICD-10-PCS; principal; 2017-10-26)
PROC: 4A023N7 Measurement of Cardiac Sampling and Pressure, Left Heart, Percutaneous Approach (ICD-10-PCS; 2017-10-27)
PROC: 027034Z Dilation of Coronary Artery, One Artery with Drug-eluting Intraluminal Device, Percutaneous Approach (ICD-10-PCS; 2017-10-27)
PROC: B2111ZZ Fluoroscopy of Multiple Coronary Arteries using Low Osmolar Contrast (ICD-10-PCS; 2017-10-27)
PROC: B2151ZZ Fluoroscopy of Left Heart using Low Osmolar Contrast (ICD-10-PCS; 2017-10-27)
DX: A41.9 Sepsis, unspecified organism (principal); I21.4 Non-ST elevation (NSTEMI) myocardial infarction; N17.0 Acute kidney failure with tubular necrosis; J96.01 Acute respiratory failure with hypoxia; J96.02 Acute respiratory failure with hypercapnia; J15.9 Unspecified bacterial pneumonia; G92 Toxic encephalopathy; J44.0 Chronic obstructive pulmonary disease with (acute) lower respiratory infection; I50.30 Unspecified diastolic (congestive) heart failure; I13.0 Hypertensive heart and chronic kidney disease with heart failure and stage 1 through stage 4 chronic kidney disease, or unspecified chronic kidney disease; N39.0 Urinary tract infection, site not specified; J44.1 Chronic obstructive pulmonary disease with (acute) exacerbation; N18.3 Chronic kidney disease, stage 3 (moderate); F17.210 Nicotine dependence, cigarettes, uncomplicated; E78.5 Hyperlipidemia, unspecified; Z66 Do not resuscitate; I48.91 Unspecified atrial fibrillation; D64.9 Anemia, unspecified; F32.9 Major depressive disorder, single episode, unspecified; F41.9 Anxiety disorder, unspecified; W18.30XA Fall on same level, unspecified, initial encounter; I25.10 Atherosclerotic heart disease of native coronary artery without angina pectoris; Z71.6 Tobacco abuse counseling; Z90.710 Acquired absence of both cervix and uterus; Z90.49 Acquired absence of other specified parts of digestive tract; Y93.89 Activity, other specified; Y92.89 Other specified places as the place of occurrence of the external cause; Y99.8 Other external cause status; Z99.81 Dependence on supplemental oxygen; Z79.01 Long term (current) use of anticoagulants; Z79.82 Long term (current) use of aspirin; Z79.899 Other long term (current) drug therapy; Z88.8 Allergy status to other drugs, medicaments and biological substances

== ENCOUNTER 2017-11-22 11:15 | Inpatient (IN) | payer MEDICARE, OTHER ==
[~2017-11-22] VITALS: Ht 152.4 cm; Wt 77.1 kg
[2017-11-22] VITALS (7 sets, daily range): BP systolic 140–156; BP diastolic 51–84
[~2017-11-22 11:15] MED LIST changes: +ASPIR 8181 MG PO; +CARVEDILOL12.5 MG PO; +DIOVAN 80 MG TA80 M1 PO; +DUONEB 2.5-0.5 M3 ML INH; +LASIX 40 MG TAB40 M2 PO; +LEVAQUIN 750 M750 MG PO; +LIVALO4 MG PO; +NITROGLYCERIN0.4 MG SUBLING; +NORVASC5 M1 PO; +PLAVIX 75 MG TA75 M1 PO; +PREDNISONE 10 M10 MG PO; +PULMICORT0.5 MG/22 INH; +SERTRALINE HCL50 MG PO; +WELCHOL 625 MG625 M1 PO; +XANAX 0.25 MG0.25 MG PO
[2017-11-22 11:37] LABS: HEMATOCRIT 29.6 % (37.0-47.0); HEMOGLOBIN 9.5 gm/dL (12.0-15.0); MCH 26.6 pg (26.0-34.0); MCHC 32.2 g/dL (28.0-37.0); MCV 82.7 fL (80.0-100.0); NUCLEATED RBCS 0 /100WBC; PLATELET COUNT* 304 thou/uL (150-400); RBC 3.57 mil/uL (4.20-5.00); RDW-CV 17.1 % (10.5-14.5); WBC 8.5 thou/uL (4.0-11.0)
[2017-11-22 11:45] LABS: ANION GAP 11 mmol/L (7-16); BUN 19 mg/dL (7-18); CALCIUM 8.8 mg/dL (8.5-10.1); CHLORIDE 107 mmol/L (98-107); CO2 27 mmol/L (21-32); CREATININE 1.3 mg/dL (0.6-1.3); GLUCOSE 136 mg/dL (70-99); POTASSIUM 3.7 mmol/L (3.5-5.1); SODIUM 145 mmol/L (136-145)
[2017-11-22 11:49] LABS: APTT 23.5 Seconds (25.0-31.3); INR 1.1
[2017-11-22 11:56] LABS: ALBUMIN 2.7 g/dL (3.4-5.0); ALKALINE PHOSPHATASE 60 U/L (46-116); NT-PRO BRAIN NAT PEPTIDE 10532 pg/mL (<300); SGOT 16 U/L (15-37); SGPT 12 U/L (30-65); TOTAL BILIRUBIN 0.2 mg/dL (<0.1-1.0); TOTAL PROTEIN 6.6 g/dL (6.4-8.2); TROPONIN-I LEVEL <0.06 ng/mL (<0.06)
[2017-11-22 12:03] LABS: ABSOLUTE BASOPHILS 0.2 thou/uL (0.0-0.2); ABSOLUTE EOSINOPHILS 0.1 thou/uL (0.0-0.7); ABSOLUTE LYMPHOCYTES 0.3 thou/uL (0.8-5.3); ABSOLUTE MONOCYTES 0.2 thou/uL (0.0-1.2); ABSOLUTE NEUTROPHILS 7.7 thou/uL (1.6-8.1); ANISOCYTOSIS 1+; HYPOCHROMASIA 2+; OVALOCYTES 2+; PLATELET ESTIMATE ADEQUATE; POIKILOCYTOSIS 1+; SCHISTOCYTES Occasional
[2017-11-22 12:04] LABS: MACROCYTES Occasional
[2017-11-22 12:16] LABS: BE -1.5 mmol/L (-2 to +3); HCO3 23.3 mmol/L (22.0-26.0); PCO2 39.3 mmHg (35.0-45.0); pH 7.391 (7.340-7.450)
[2017-11-22 12:19] LABS: PO2 162.4 mmHg (75.0-100.0)
[2017-11-22 16:33] LABS: URINE BILIRUBIN NEGATIVE (Negative); URINE BLOOD NEGATIVE (Negative); URINE CLARITY CLEAR; URINE COLOR YELLOW; URINE GLUCOSE-RANDOM NEGATIVE (Negative); URINE KETONES NEGATIVE (Negative); URINE LEUKOCYTES-REFLEX 1+ (Negative); URINE NITRITE-REFLEX NEGATIVE (Negative); URINE PROTEIN TRACE (Negative); URINE SPECIFIC GRAVITY 1.025 (1.005-1.030); URINE UROBILINOGEN 0.2 E.U./dl (0.2-1.0)
--- NOTE | 2017-11-22 16:48 | EKG ---
[place] [address] ELECTROCARDIOGRAM REPORT Name: KIMANI SAWYER Room: [address] ADM IN .R.#: [id number] Admission: 11/22/17 Attend Phys: Oscar Hooper Discharge: Date of : 40 Report #: [id number] THIS REPORT FOR: //name// [facility] ED Test Date: 2017-11-22 Test Time: 11:36:57 Pat Name: KIMANI SAWYER Department: Room: [facility] Gender: F Commercial Field Inspector: : 1940 Requested By: Cuauhtemoc Henriquez Order Number: [id number] MD: Drew Alvarez Measurements Intervals [place] Rate: 134 P: CO: QRS: 9 QRSD: 111 T: 171 QT: 326 QTc: 487 Interpretive Statements Atrial flutter Ventricular premature complex ST depression, probably rate related Borderline prolonged QT interval Compared to ECG 10/29/2017 08:39:17 Ventricular premature complex(es) now present Sinus rhythm no longer present ST (T wave) deviation still present Electronically Signed On 11-22-2017 16:48:12 CDT by Drew Alvarez [email or web address] <ELECTRONICALLY SIGNED> By: Drew Alvarez MD, [facility] 11/22/17 1648 1136 1136 Drew Alvarez MD, [facility] /EPI
[2017-11-22 16:52] LABS: MUCUS None Seen strn/LPF (None Seen); SQUAMOUS >10 Many /LPF (0-3)
[2017-11-22 16:53] LABS: HYALINE CASTS 4-10 Moderate /LPF (None Seen); URINE WBC-REFLEX 6-15 Few /HPF (0-5)
[2017-11-22 16:54] LABS: BACTERIA-REFLEX 1-9 Few /HPF (None Seen); CRYSTALS None Seen /LPF (None Seen); URINE RBC None Seen /HPF (0-2)
--- NOTE | 2017-11-22 18:04 | NUR ---
PATIENT PROGRESSING TOWARDS GOALS. HR CONVERTED TO SINUSR RHYTHM WITH PACS, RATE IN 90S. DR FORD SAW PATIENT AND STARTED SOTALOL, AND GTT TO BE DISCONTINUED AFTER ADMINISTRATION. PATIENT O2 TITRATED FROM BIPAP TO 12L HIGH FLOW CANNULA. LUNG SOUNDS NOW DIMINISHED. PATIENT UP MULTIPLE TIMES TO THE BSC WITH STANDBY ASSIST, COMPLAINTS OF BURNING WHEN URINATING. UA SENT. DR AVILA NOTIFIED OF RESULTS, ON APPROPRIATE ANTIBIOTICS. AFEBRILE. DOES HAVE MINOR "RIB PAIN" THAT SHE IS UNABLE TO RATE, BUT STATES SHE DOES NOT NEED INTERVENTION AT THIS TIME. APPROPRIATE APPETITE. DENIES FURTHER NEEDS AT THIS TIME.
[2017-11-22] MEDS ORDERED: ALBUTEROL2.5 MG/31 INH (18:39)
[2017-11-22] MEDS ORDERED: VITAMIN C500 M2 PO (18:40)
[2017-11-22] MEDS ORDERED: COREG6.25 MG PO (18:40)
[2017-11-22] MEDS ORDERED: PEPCID20 MG PO (18:41)
--- NOTE | 2017-11-23 00:04 | NUR ---
ASSUMED CARE OF PT AT 1900 ALERT AND ORIENTED X4 VS AND ASSESSMENT STABLE PT TRANSITIONED FROM IV CARDIZEM TO PO SOTALOL. PT DENIED ANY COMPLAINTS. PT TRANSFERED TO TELE AT [facility]. WILL CONTINUE PLAN OF CARE
[2017-11-23 00:20] VITALS: BP 164/90
--- NOTE | 2017-11-23 00:30 | NUR ---
PATIENT TRANSFERRED TO ROOM 229 VIA WHEELCHAIR AT 0020. PATIENT AMBULATORY TO UNIT BED WITH NO ISSUES WITH ACTIVITY. PATIENT A&OX4, FORGETFUL AT TIMES. PATIENT DENIES PAIN AND DISCOMFORT. PATIENT ORIENTED TO ROOM AND CALL LIGHT. PAIRER SUBSTANDARD TRACING SR, PACS. VSS. PATIENT STATES SHE "WANTS TO GO TO SLEEP." QUIET AND DARK ENVIRONMENT PROMOTED. GOAL IS FOR PATIENT TO REST COMFORTABLY THROUGHOUT SHIFT AND MAINTAIN O2 SATURATION WNL. CALL LIGHT WITHIN REACH
[2017-11-23 04:00] VITALS: BP 141/76
--- NOTE | 2017-11-23 05:00 | NUR ---
PATIENT REMAINS STABLE SINCE TRANSFER AND PROGRESSING TOWARDS GOALS: PATIENT HAS BEEN SLEEPING THIS SHIFT. SUPERVISOR TOWER CONTINUES TO TRACE SR W/ OCCASIONAL PACS. VSS. PATIENT ON 12L HFC WITH SATS >92%. PATIENT DENIES PAIN AND DISCOMFORT. HOURLY ROUNDING OBSERVED. CALL LIGHT WITHIN REACH
[2017-11-23 06:09] LABS: CALCIUM 8.3 mg/dL (8.5-10.1); CREATININE 1.4 mg/dL (0.6-1.3); POTASSIUM 3.5 mmol/L (3.5-5.1)
[2017-11-23 08:07] VITALS: BP 157/97
--- NOTE | 2017-11-23 09:48 | NUR ---
ASSUMED CARE OF PT THIS AM AROUND 0715- INTEGRATED LOGISTICS PROGRAMS DIRECTOR IN PLACE ORDERED, TRACING SR WITH 1ST DEGREE/BBB- UPON ASSESSMENT PT NOTED TO BE RESTING IN BED- PT A&O X4, FORGETFULL AT TIMES- SBA WITH TRANSFERS- CONTINENT OF BOWEL AND BLADDER, OCCASIONAL STRESS INCONTINENTS REPORTED- DIMINISHED LUNG SOUNDS NOTED, LABORED BREATHING AT TIMES- DYSPNEA NOTED ON EXERTION- VSS, O2 SAT 96% ON HF 12L- ABDOMEN FIRM/ROUND/NON-TENDER, BS X4 ACTIVE- LAST BM REPORTED 11/22/17- 1+ BLE EDEMA NOTED- IV NOTED TO LEFT AC AND RIGHT SC INTACT AND SL- REDENED BOTTOM NOTED, BARRIOR CREAM APPLIED INDICATED- PT UP TO CHAIR THIS AM WITH BREAKFAST, FAIR PO INTAKE NOTED- PT DENIES ANY C/O PAIN/DISCOMFORT AT THIS TIME- CALL LIGHT AND PERSONAL BELONGINGS WITH IN REACH-BED/CHAIR ALARM IN PLACE INDICATED FOR SAFETY- HOURLY ROUNDS IN PLACE R/T SAFETY/NEEDS- ALL NEEDS MET AT THIS TIME-WCTM
--- NOTE | 2017-11-23 11:21 | NUR ---
This RN agrees with the assessment of SN. Zhane
[2017-11-23 12:00] VITALS: BP 143/61
--- NOTE | 2017-11-23 15:28 | NUR ---
MET WITH PT TO DISCUSS HOME SITUATION/DC PLANNING. PT LIVES ALONE, DTR IS SUPPORTIVE AND IS DPOA. PT KNOWN TO CM FROM PREVIOUS HOSPITAL STAY. PT LIVES ALONE, HAS PREVIOUSLY BEEN INDEPENDENT AND ACTIVE. HAS HOME O2 AND NEBULIZER THRU [facility]. SHE HAD SNF STAY AT [facility] FROM 11/01-11/10. SPOKE WITH VERONICA/EH, PT DECLINED HH AT DC. PT NOW ON O2 12L, DROWSY. SHE WANTS TO GO HOME AT DC. WILL FOLLOW
[2017-11-23 16:39] VITALS: BP 126/63
--- NOTE | 2017-11-23 18:41 | NUR ---
PT CURRENTLY RESTING IN BED- MECHANICAL ASSEMBLER IN PLACE ORDERED, TRACING SR- IV TO LEFT AC AND RIGHT AC D/C'D, NOTED TO CLOT OFF- NEW 22GAUGE PLACED TO LEFT AC- NEW ORDERED NOTED FOR IV AZITHROMAX THIS SHIFT AND GIVEN PRESCIBED, NO ADVERSE REACTIONS TO NOTE- PT C/O AND NOTED TO BECOME ANXIOUS WITH IV REPLACEMENT- PRN ALPRAZOLAM GIVEN AT 1638 PER PT REQUEST, PT REPORTS MEDICATION TO BE EFFECTIVE- PT UP TO BEDSIDE CHAIR WITH MEALS THIS SHIFT, FAIR PO INTAKE NOTED- O2 DECREASED TO 9HF PER R/T THIS SHIFT, PT TOLERATING WELL- ORDER FOR MUCINEX OBTAINED AND GIVEN PRESCIBED R/T C/O CONGESTION IN THROAT- PT DENIES ANY C/O PAIN/DISCOMFORT AT THIS TIME- CALL LIGHT AND PERSONAL BELONGINGS WITH IN REACH- HOULRY ROUNDS IN PLACE R/T SAFETY/NEEDS- BED ALARM IN PLACE AND WORKING FOR PT SAFETY- ALL NEEDS MET AT THIS TIME-[facility]
[2017-11-23 20:00] VITALS: BP 153/72
[2017-11-24] VITALS (8 sets, daily range): BP systolic 121–157; BP diastolic 64–98
--- NOTE | 2017-11-24 04:31 | NUR ---
ASSUMED CARE OF PT AT 1915. NURSING ASSESSMENT COMPLETED THIS SHIFT, PT VOICED NO CONCERS, DENIES PAIN, TRACING SINUS RHYTHM WITH BBB ON BANK SALES AND SERVICE MANAGER. HOURLY ROUNDING COMPLETED, CALLL LIGHT WITHIN REACH. NO FALLS THIS SHIFT.
[2017-11-24 05:26] LABS: ABSOLUTE EOSINOPHILS 0.1 thou/uL (0.0-0.7); ABSOLUTE LYMPHOCYTES 0.6 thou/uL (0.8-5.3); ABSOLUTE MONOCYTES 0.4 thou/uL (0.0-1.2); ABSOLUTE NEUTROPHILS 6.2 thou/uL (1.6-8.1); BASOPHILS 0.5 %; HEMATOCRIT 24.5 % (37.0-47.0); MCH 26.6 pg (26.0-34.0); MCHC 32.8 g/dL (28.0-37.0); MCV 81.3 fL (80.0-100.0); MONOCYTES 5.3 %; MPV 7.9 fl. (7.2-11.1); NUCLEATED RBCS 0 /100WBC; PLATELET COUNT* 234 thou/uL (150-400); POLYS 84.2 %; RBC 3.02 mil/uL (4.20-5.00); RDW-CV 17.2 % (10.5-14.5); WBC 7.3 thou/uL (4.0-11.0)
[2017-11-24 05:54] LABS: ALBUMIN 2.6 g/dL (3.4-5.0); CALCIUM 8.5 mg/dL (8.5-10.1); CREATININE 1.3 mg/dL (0.6-1.3); POTASSIUM 3.6 mmol/L (3.5-5.1); TOTAL BILIRUBIN 0.2 mg/dL (<0.1-1.0); TOTAL PROTEIN 5.3 g/dL (6.4-8.2)
--- NOTE | 2017-11-24 09:46 | NUR ---
ASSUMED CARE OF PT THIS AM AROUND 0715- ALTERATIONS TAILOR IN PLACE ORDERED, TRACING SR WITH BBB/1ST DEGREE- UPON ASSESSMENT PT NOTED TO BE RESTING IN BED- PT A&O X4, FORGETFULLNESS NOTED- CONTINENT OF BOWEL AND BLADDER, STRESS INCONTINENTS NOTED- SBA WITH TRANSFERS NOTED- EXPIRATORY WHEEZING- LABORED BREATHING NOTED- DYSPNEA NOTED ON EXERTION- VSS, O2 SAT 93% ON 10HF NC- ABDOMEN FIRM/ROUND/NON-TENDER, BS HYPOACTIVE-GOOD SIZE BM NOTED THIS AM- IV NOTED TO LEFT AC INTACT AND SL- IV ABT GIVEN PRESCIBED THIS AM- XANAX PRN FOR ANXIETY THIS SHIFT- BARRIOR CREAM TO BUTTOCKS INDICATED- REGULAR DIET WITH FAIR PO INTAKE NOTED-HGB THIS AM NOTED AT 8.0 NOTED TO BE DOWN FROM 9.5 PRIOR- NO ACTIVE S/S BLEEDING NOTED- STUDENT PHYSICIAN NOTIFIED WITH ORDERS NOTED FOR CT OF ABDOMEN- SCATTERED BRUISING NOTED TO UE- +1 BLE EDEMA NOTED- CALL LIGHT AND PERSONAL BELONGINGS WITH IN REACH- HOURLY ROUNDS IN PLACE R/T SAFETY/NEEDS- BED/MOUSTAPHA ALARM IN PLACE AND WORKING FOR PT SAFETY- ALL NEEDS MET AT THIS TIME-[facility]
--- NOTE | 2017-11-24 10:42 | NUR ---
This RN agrees with the assessment of SN. Zhane
--- NOTE | 2017-11-24 13:34 | NUR ---
CONTINUE TO FOLLOW, PT UP IN CHAIR, STATES FEELING BETTER TODAY AND ANXIOUS TO GO HOME. REMAINS ON HI-FLOW O2 AT 10L. CALL TO DTR/RAMIREZ, HAD TO LEAVE MSG PT PLANS TO GO HOME AT DC. ADMITS TO DECLINING HH AT DC FROM SNF. STATES, MY DTR TAKES CARE OF THAT.
--- NOTE | 2017-11-24 15:13 | EKG ---
[place] [address] ELECTROCARDIOGRAM REPORT Name: KIMANI SAWYER Room: [address] ADM IN M.R.#: [id number] Admission: 11/22/17 Attend Phys: Oscar Hooper Discharge: Date of : 40 Report #: [id number] THIS REPORT FOR: //name// [facility] Test Date: 2017-11-24 Test Time: 10:55:45 Pat Name: KIMANI SAWYER Department: Room: [address] Gender: F Direct Marketing Coordinator: : 1940 Requested By: Nika Case Order Number: [id number] Nikita MD: Drew Alvarez Measurements Intervals [place] Rate: 67 P: 38 AK: 96 QRS: 5 QRSD: 115 T: 191 QT: 449 QTc: 474 Interpretive Statements Sinus rhythm Atrial premature complexes Short AK interval ST depr, consider ischemia, anterolateral lds Borderline ST elevation, anterior leads Baseline wander in lead(s) II,III,aVR,aVF,V1,V3,V4,V5,V6 Compared to ECG 11/23/2017 no change Electronically Signed On 11-24-2017 15:13:07 CDT by Drew Alvarez [email or web address] <ELECTRONICALLY SIGNED> By: Drew Alvarez MD, FACC 11/24/17 1513 1055 1055 Drew Alvarez MD, FAC /EPI
--- NOTE | 2017-11-24 15:14 | NUR ---
PT CURRENLTY RESTING IN BED, CALL CENTER SUPPORT REPRESENTATIVE IN PLACE ORDERED, TRACING SR WITH BB- IV TO LEFT AC INTACT AND SL- UA CULTURE RESTULTED THIS SHIFT WITH 10,000 GRAM POSITIVE COCCI AND 10,000 YEAST- RESULTS CALLED TO BARBARA SALAZAR ORDERS NOTED FOR IV LEVAQUIN AND GIVEN PRESCIBED- PT UP TO CHAIR WITH MEALS THIS SHIFT, TOLERATING WELL- FAIR PO INTAKE NOTED- PT DENIES ANY PAIN AT THIS TIME- CALL LIGHT AND PERSONAL BELONGINGS WITH IN REACH- HOURLY ROUNDS IN PLACE R/T SAFETY/NEEDS- ALL NEEDS MET AT THIS TIME-WCT[facility]
[2017-11-24 15:17] LABS: HEMATOCRIT 24.5 % (37.0-47.0); HEMOGLOBIN 8.2 gm/dL (12.0-15.0)
[2017-11-24 21:26] LABS: BE -4.6 mmol/L (-2 to +3); HCO3 23.9 mmol/L (22.0-26.0); PO2 82.3 mmHg (75.0-100.0)
[2017-11-24 21:28] LABS: PCO2 62.8 mmHg (35.0-45.0); pH 7.199 (7.340-7.450)
[2017-11-24 21:36] LABS: ABSOLUTE EOSINOPHILS 0.3 thou/uL (0.0-0.7); ABSOLUTE LYMPHOCYTES 0.9 thou/uL (0.8-5.3); ABSOLUTE MONOCYTES 0.5 thou/uL (0.0-1.2); ABSOLUTE NEUTROPHILS 7.7 thou/uL (1.6-8.1); BASOPHILS 0.4 %; EOSINOPHILS 2.8 %; HEMATOCRIT 30.8 % (37.0-47.0); HEMOGLOBIN 9.8 gm/dL (12.0-15.0); LYMPHOCYTES 9.7 %; MCH 26.5 pg (26.0-34.0); MCV 82.7 fL (80.0-100.0); MONOCYTES 4.9 %; MPV 7.4 fl. (7.2-11.1); NUCLEATED RBCS 0 /100WBC; POLYS 82.2 %; RBC 3.72 mil/uL (4.20-5.00); RDW-CV 17.4 % (10.5-14.5); WBC 9.4 thou/uL (4.0-11.0)
[2017-11-24 21:47] LABS: PLATELET COUNT* 369 thou/uL (150-400)
[2017-11-24 21:50] LABS: ANION GAP 11 mmol/L (7-16); BUN 28 mg/dL (7-18); CALCIUM 8.7 mg/dL (8.5-10.1); CHLORIDE 104 mmol/L (98-107); CO2 27 mmol/L (21-32); CREATININE 1.4 mg/dL (0.6-1.3); GLUCOSE 242 mg/dL (70-99); POTASSIUM 4.1 mmol/L (3.5-5.1); SODIUM 142 mmol/L (136-145)
[2017-11-24 21:54] LABS: CALCIUM 8.8 mg/dL (8.5-10.1); CREATININE 1.4 mg/dL (0.6-1.3); POTASSIUM 4.1 mmol/L (3.5-5.1)
--- NOTE | 2017-11-24 22:00 | NUR ---
ASSUMED CARE OF PT AT 1930. PT RESTING IN BED QUIETLY, VOICED NO CONCERNS AT START OF SHIFT, NO S/S OF RESPIRATORY DISTRESS AT START OF SHIFT. ON TELE MONITOR TRACING SR WITH BBB. AT APPROX 2049, FOUND PATIENT DRISCOLL IN COLOR, UNRESPONSIVE, ON 7L O2, O2 SAT IN THE MID 20'S TO 30'S WITH SHALLOW RESPIRATIONS. RAPID RESPONSE ACTIVATED, COMPLETION ENGINEER, PHYSICIST CRYOGENICS, RT, AND DR. ORTA IN ROOM WITH PATIENT. PT O2 SAT DID NOT IMPROVE WITH NONREBREATHER MASK, RT ASSISTED PATIENT BREATHING, PLACED ON BIPAP, ABGS OBTAINED, AND ORDERS TO TRANSFER PATIENT TO ICU OBTAINED. DR. PINA NOTIFIED OF PATIENT'S CHANGE IN CONDITION, NEW ORDERS RECEIVED, STAT PULMONARY CONSULT CALLED IN AT 2144, SPOKE WITH DR. LOREDO. NEW ORDERS RECEIVED FOR REPEAT ABGS 1 HR FROM START OF BIPAP, CHANGE IN DUONEB TX FREQUENCY, SOLUMEDROL 80 MG IV PUSH X1 DOSE. PT O2 SAT WITH BIPAP 99-100%. REPORT GIVEN TO INDUSTRIAL ROBOTICS MECHANIC AND PATIENT TRANSFERED DOWN TO ICU AT APPROX 2214.
[2017-11-24 22:05] LABS: ALKALINE PHOSPHATASE 67 U/L (46-116); CK-MB MASS 1.2 ng/mL (<0.5-3.6); SGOT 15 U/L (15-37); SGPT 15 U/L (30-65); TOTAL BILIRUBIN 0.2 mg/dL (<0.1-1.0); TOTAL PROTEIN 6.3 g/dL (6.4-8.2); TROPONIN-I LEVEL <0.06 ng/mL (<0.06)
[2017-11-24 22:30] LABS: BE 0.2 mmol/L (-2 to +3); HCO3 25.5 mmol/L (22.0-26.0); PCO2 44.5 mmHg (35.0-45.0); pH 7.376 (7.340-7.450)
[2017-11-24 22:33] LABS: PO2 171.2 mmHg (75.0-100.0)
--- NOTE | 2017-11-24 23:23 | NUR ---
TRANSFERRED WITH PATIENT FROM [facility], RECEIVED REPORT FROM HIM CODER ON FLOOR, AT APPROX 2200. PATIENT ON BIPAP, AWAKE AND ALERT. VITAL SIGNS STABLE. SEED SERVICE ADVISOR COMPLETED. STAT ORDERS COMPLETED. HR IRREGULAR ON MONITOR. O2 94% AT THIS TIME. PATIENT INQUIRED TO WHAT HAPPENED AND WAS INFORMED. NO COMLAINTS OF PAIN AT THIS TIME.
[2017-11-25] VITALS (18 sets, daily range): BP systolic 122–186; BP diastolic 73–99
[2017-11-25 04:44] LABS: ABSOLUTE LYMPHOCYTES 0.2 thou/uL (0.8-5.3); ABSOLUTE MONOCYTES 0.1 thou/uL (0.0-1.2); ABSOLUTE NEUTROPHILS 8.7 thou/uL (1.6-8.1); BASOPHILS 0.2 %; EOSINOPHILS 0.1 %; LYMPHOCYTES 1.9 %; MCH 26.8 pg (26.0-34.0); MCHC 33.4 g/dL (28.0-37.0); MCV 80.3 fL (80.0-100.0); MONOCYTES 1.3 %; MPV 7.8 fl. (7.2-11.1); NUCLEATED RBCS 0 /100WBC; POLYS 96.5 %; RBC 3.37 mil/uL (4.20-5.00)
[2017-11-25 05:01] LABS: PLATELET COUNT* 258 thou/uL (150-400)
[2017-11-25 05:10] LABS: ALBUMIN 2.8 g/dL (3.4-5.0); CALCIUM 8.9 mg/dL (8.5-10.1); CREATININE 1.2 mg/dL (0.6-1.3); POTASSIUM 3.7 mmol/L (3.5-5.1); TOTAL BILIRUBIN 0.3 mg/dL (<0.1-1.0); TOTAL PROTEIN 6.3 g/dL (6.4-8.2)
--- NOTE | 2017-11-25 05:14 | NUR ---
PATIENT REQUESTING DNR DESIGNATION.
--- NOTE | 2017-11-25 06:48 | NUR ---
PATIENT REMAINED ON BIPAP THROUGH THE NIGHT. NO COMPLAINTS OF PAIN OR DISCOMFORT. ABLE TO TRANSFER TO [facility]. MANAGED ALL ORAL MEDICATION ONE PILL AT A TIME WITH SIPS OF WATER. CURRENTLY SITTING AT THE SIDE OF THE BED ON O2 AT 10L. SATURATION LEVEL AT 92-96%, DEPENDING ON SIPS OF WATER. DAUGHTER, RAMIREZ, CONTACTED AND UPDATED ON WHAT HAPPENED AND HER MOTHERS LOCATION AT TH IS TIME.
--- NOTE | 2017-11-25 07:09 | NUR ---
LAB CALLED WITH POSITIVE BLOOD CULTURE ON 1 VIAL. LAB STATED THAT "IT IS MOST LIKELY A CONTAMINATED SAMPLE THIS IS AN ORGANISM ASSOCIATED WITH SKIN" NOTED 2ND CULTURE THAT IS COMPLETE IS NEGATIVE
--- NOTE | 2017-11-25 10:55 | CON ---
[address] [address] CONSULTATION Name: KIMANI SAWYER Room: [address] IN M.R.#: [id number] Admission: 11/22/17 Attend Phys: Oscar Hooper Discharge: Date of : 40 Report #: [id number] THIS REPORT FOR: //name// CC: Jose Mitchell PRIMARY DOCTOR: Morgan Mitchell DO PRIMARY NATIONAL SALES TRAINER: Drew Alvarez MD REASON FOR CONSULTATION: AFib. HISTORY OF PRESENT ILLNESS: The patient is a 77-year-old shelter patient who was transferred with acute respiratory failure and atrial fibrillation. She presents with a wider complex. This was noted on her ECGs. She was placed on IV Cardizem in the Emergency Room and converted to sinus rhythm. She denies symptoms of chest pain or shortness of breath until the last 3-4 days. Then, she became short of breath. She has history of chronic obstructive pulmonary disease. She has history of coronary artery disease, underwent a 10/30/2017 PCI with a drug-eluting stent to the RCA by my partner, Dr. Alvarez. She had atrial fibrillation that hospitalization apparently also and it was decided because of her requirement for dual antiplatelet therapy and her known fall history that she was not a candidate for aggressive dual anticoagulation. She denies neuro symptoms of slurred speech, numbness or weakness. There is no record of bleeding. She has chronic obstructive pulmonary disease. She has hyperlipidemia. Denies muscle aches or cramps. PAST MEDICAL HISTORY: PCI 2018. She had a 30% proximal LAD stenosis with a 40% distal LAD stenosis. Circumflex had a 40% stenosis and she had a proximal 90% RCA stenosis, which was treated with drug-eluting stent in the proximal RCA. Ejection fraction was normal. She had a October 2017 carotid Doppler, which revealed no significant stenosis. Paroxysmal atrial fibrillation. History of pneumonia. History of COPD, hypertension, hyperlipidemia [place] [address] CONSULTATION Name: KIMANI SAWYER [place] Room: [address]#: [id number] Admission: 11/22/17 Attend Phys: Oscar Hooper Discharge: Date of : 40 Report #: [id number] SOCIAL HISTORY: Tobacco. FAMILY HISTORY: Positive for high blood pressure. MEDICATIONS: Amlodipine 10 mg daily, aspirin 81 mg daily, Plavix 75 mg daily, Lasix 40 mg daily, albuterol, Atrovent, Livalo 4 mg daily, prednisone taper, alprazolam. REVIEW OF SYSTEMS: CENTRAL NERVOUS SYSTEM: No neuro symptoms of slurred speech, numbness or weakness. GENERAL: No weight loss or fevers. RESPIRATORY: Positive cough, positive shortness of breath. CARDIOVASCULAR: No chest pain. Positive shortness of breath. Positive edema. ENDOCRINE: No diabetes. GASTROINTESTINAL: No nausea or vomiting. GENITOURINARY: No dysuria or hematuria. HEMATOLOGIC: Positive anemia. ALLERGIES: Positive medical allergies. MUSCULOSKELETAL: Negative for arthritis symptoms. GENERAL: No fevers or chills. PHYSICAL EXAMINATION: VITAL SIGNS: Blood pressure is 150/84, pulse 85, in sinus rhythm. GENERAL: This is a pleasant elderly female. She is alert, no apparent distress. NECK: Supple. No jugular venous distention. CARDIOVASCULAR: Regular. I cannot hear a murmur. LUNGS: Clear to auscultation, diminished breath sounds. ABDOMEN: Nontender. EXTREMITIES: There is 1-2+ edema. NEUROLOGIC: There are no focal deficits. LABORATORY DATA: Her hemoglobin is 9.5, white blood cell count is 8.5, platelet count is 204,000. INR is 1.1. NT-proBNP is 10,532. Troponin I is 0.06. AST is 16, ALT is 12, creatinine is 1.3. Sodium is 145, potassium 3.7. IMAGING: V/Q scan shows no scintigraphic evidence for PE. Chest x-ray reveals infiltrates and effusions with improvement on the right. IMPRESSION: 1. Respiratory failure. This is multifactorial, likely related to chronic obstructive pulmonary disease and possible diastolic heart failure. I would continue with diuresis and monitor renal function closely. She will continue with nebulizer treatment for chronic obstructive pulmonary disease [place] [address] CONSULTATION Name: KIMANI SAWYER [place] Room: [address] IN [facility]#: [id number] Admission: 11/22/17 Attend Phys: Oscar Hooper Discharge: Date of : 40 Report #: [id number] 2. Coronary artery disease. Initial cardiac troponin level is negative. I would continue with aspirin and Plavix. I would cycle troponin levels. 3. Acute diastolic heart failure as noted above, she has a history of preserved left ventricular systolic function. 4. Coronary artery disease. She will continue with Plavix therapy. 5. Tobacco abuse. Cessation is recommended. 6. Atrial fibrillation. As noted above, apparently she is a fall risk and she had previous events of atrial fibrillation and was not felt to be a good candidate for aggressive anticoagulation. I would continue with her current strategy and IV Cardizem loading and will transition to p.o. Cardizem. As she does have fairly normal renal function, we can place her on low dose sotalol. I would not place her on amiodarone because of her lung disease. <ELECTRONICALLY SIGNED> By: Tim Monet MD, FACC 11/25/17 1055 1728 [id number] Monet MD, FACC /nt
--- NOTE | 2017-11-25 13:48 | 2DMMODE ---
[place] [address] 2 D/M-MODE ECHOCARDIOGRAM Name: KIMANI SAWYER Room: [address] IN [facility]#: [id number] Admission: 11/22/17 Attend Phys: Morgan Mitchell Discharge: Date of : 40 Date of Service: 11/25/17 1348 Report #: [id number] THIS REPORT FOR: //name// APPROVED REPORT Study performed: 11/25/2017 09:39:12 EXAM: Comprehensive 2D, Doppler, and color-flow Echocardiogram Patient Location: In-Patient Room #: 006 Status: routine BSA: 1.85 HR: 87 bpm BP: 156/69 mmHg Rhythm: NSR Other Information Study Quality: Good Indications Abnormal ECG Atrial Fibrillation Pneumonia 2D Dimensions LVEF(%): 50.63 (>50%) IVSd: 14.36 (7-11mm) LVOT Diam: 20.70 (18-24mm) LVDd: 52.36 mm PWd: 12.21 (7-11mm) Ascending Ao: 34.70 (22-36mm) LVDs: 38.77 (25-40mm) Aortic Root: 32.04 mm Real's LVEF: 50.63 % Volumes Left Atrial Volume (Systole) LA ESV Index: 69.30 mL/m2 Aortic Valve AoV Peak Sammy.: 1.45 m/s AO Peak Gr.: 8.46 mmHg LVOT Max P.08 mmHg AO Mean Gr.: 4.49 mmHg LVOT Mean P.88 mmHg LVOT Max V: 1.01 m/s AO V2 VTI: 31.05 cm LVOT Mean V: 0.62 m/s LEONIDES (VTI): 2.42 cm2 LVOT V1 VTI: 22.28 [place] [address] 2 D/M-MODE ECHOCARDIOGRAM Name: KIMANI SAWYER Room: [address] IN ..#: [id number] Admission: 11/22/17 Attend Phys: Morgan Mitchell Discharge: Date of : 40 Date of Service: 11/25/17 1348 Report #: [id number] Mitral Valve E/A Ratio: 1.12 MV Decel. Time: 136.11 ms MV E Max Sammy.: 1.54 m/s MV PHT: 39.47 ms MVA (PHT): 5.57 cm2 TDI E/Lateral E': 15.40 E/Medial E': 25.67 Medial E' Sammy.: 0.06 m/s Lateral E' Sammy.: 0.10 m/s Pulmonary Valve PV Peak Sammy.: 0.96 m/s PV Peak Gr.: 3.68 mmHg Left Ventricle The left ventricle is normal size. There is normal LV segmental wall motion. Mild concentric left ventricular hypertrophy. Left ventricular systolic function is normal. The left ventricular ejection fraction is within the normal range. LVEF is 50-55%. Grade III - reversible restrictive diastolic dysfunction. Right Ventricle The right ventricle is normal size. The right ventricular systolic function is normal. Atria Left atrium is severely dilated. Atrial septum is bowed toward the right, consistent with elevated left atrial pressures. The right atrium size is normal. Aortic Valve The aortic valve is normal in structure. No aortic regurgitation is present. There is no aortic valvular stenosis. Mitral Valve There is mitral annular calcification. Trace mitral regurgitation. No evidence of mitral valve stenosis. Tricuspid Valve The tricuspid valve is normal in structure. Trace tricuspid regurgitation. Unable to assess PA pressure. Pulmonic Valve The pulmonary valve is normal in structure. Mild [place] [address] 2 D/M-MODE ECHOCARDIOGRAM Name: KIMANI SAWYER Room: [address] IN [facility]#: [id number] Admission: 11/22/17 Attend Phys: Morgan Mitchell Discharge: Date of : 40 Date of Service: 11/25/17 1348 Report #: [id number] Great Vessels The aortic root is normal in size. IVC is normal in size and collapses with >50% inspiration Pericardium There is no pericardial effusion. Left pleural effusion. <Conclusion> The left ventricle is normal size. Mild concentric left ventricular hypertrophy. There is normal LV segmental wall motion. LVEF is 50-55% Grade III - reversible restrictive diastolic dysfunction. Left atrium is severely dilated. No aortic regurgitation is present. There is no aortic valvular stenosis. Trace mitral regurgitation. There is no pericardial effusion. Left pleural effusion. Atrial septum is bowed toward the right, consistent with elevated left atrial pressures. <ELECTRONICALLY SIGNED> By: Tim Monet MD, FACC 11/25/17 1348 1348 1348 Tim Monet MD, FACC /INF
--- NOTE | 2017-11-25 16:27 | EKG ---
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
--- NOTE | 2017-11-25 18:45 | NUR ---
ASSESSMENT COMPLETED REFER TO COMPUTER CHARTING. SQUEEGEER AND FORMER TRACKING SA. PATIENT IS ALERT AND ORIENTATED, CONFUSSION, ANXIOUS AND IMPULSIVE AT TIMES. BED IN LOW AND LOCKED POSITION. CALL LIGHT WITHIN REACH. SIDE RAILS UP AND FALL PERCAUTIONS IN PLACE. IV SALINE LOCKED. PATIENT TITRATED TO 8 LITERS HIGH FLOW NASAL CANNULA WITH O2 SAT READING 94%. PATIENT UP TO THE BED SIDE COMMODE MULTIPLE TIMES WITH ASSISTANCE THIS SHIFT. PATIENT ALSO INCONTINENT AT TIMES. FAMILY IN TO SEE PATIENT THIS AFTERNOON. WILL CONTINUE TO MONITOR THIS SHIFT.
--- NOTE | 2017-11-25 19:49 | NUR ---
assumed patient care at 1915. Patient alert and oriented, a little confused and anxious also. Patient requested HS medications so that she could "hopefully, get some sleep". No complaints of pain or discomfort noted. Remains on hiflo NC at l. O2 sat at 98%. manager internal completed. Please see documentation. Will continue to monitor.
[2017-11-26] VITALS (11 sets, daily range): BP systolic 105–164; BP diastolic 50–84
[2017-11-26 04:46] LABS: HEMATOCRIT 23.7 % (37.0-47.0); HEMOGLOBIN 8.1 gm/dL (12.0-15.0); MCH 27.1 pg (26.0-34.0); MCV 79.6 fL (80.0-100.0); MPV 7.7 fl. (7.2-11.1); NUCLEATED RBCS 0 /100WBC; PLATELET COUNT* 251 thou/uL (150-400); RBC 2.98 mil/uL (4.20-5.00); RDW-CV 17.3 % (10.5-14.5); WBC 9.6 thou/uL (4.0-11.0)
[2017-11-26 05:10] LABS: ALBUMIN 2.5 g/dL (3.4-5.0); CALCIUM 8.9 mg/dL (8.5-10.1); CREATININE 1.3 mg/dL (0.6-1.3); TOTAL BILIRUBIN 0.3 mg/dL (<0.1-1.0); TOTAL PROTEIN 5.6 g/dL (6.4-8.2)
[2017-11-26 05:33] LABS: POTASSIUM 2.9 mmol/L (3.5-5.1)
[2017-11-26 06:20] LABS: ABSOLUTE BASOPHILS 0.1 thou/uL (0.0-0.2); ABSOLUTE EOSINOPHILS 0.4 thou/uL (0.0-0.7); ABSOLUTE LYMPHOCYTES 0.7 thou/uL (0.8-5.3); ABSOLUTE MONOCYTES 0.4 thou/uL (0.0-1.2); ABSOLUTE NEUTROPHILS 8.1 thou/uL (1.6-8.1)
[2017-11-26 06:21] LABS: PLATELET ESTIMATE ADEQUATE
[2017-11-26 06:22] LABS: ANISOCYTOSIS 1+; OVALOCYTES 1+; SCHISTOCYTES Occasional; TEARDROPS Occasional
--- NOTE | 2017-11-26 06:22 | NUR ---
PATIENT CONFUSED WHEN SHE IS AWAKENED FOR A TIME. WILL GET OUT OF BED, OVER THE SIDE RAILS AND ALSO ATTEMPT TO "GET UNTANGLED" BY REMOVING VITAL SIGN LEADS. NO COMPLAINTS OF PAIN OR DISCOMFORT. VERY GOOD BED MOBILITY. REMAINS ON O2 HIFLO AT 6L. HUMIDIFIER APPLIED APPROX 0130. CRIT LOW k+ CALLED TO NEW ORDERS RECEIVED. HOURLY ROUNDING COMPLETED CHARTED. REMAINED AFEBRILE THROUGH SHIFT.
--- NOTE | 2017-11-26 08:25 | CON ---
[address] [address] CONSULTATION Name: KIMANI SAWYER Room: [address] IN M.R.#: [id number] Admission: 11/22/17 Attend Phys: Oscar Hooper Discharge: Date of : 40 Report #: [id number] THIS REPORT FOR: //name// CC: Jose Mitchell HISTORY OF PRESENT ILLNESS: The patient is a 77-year-old female patient with history of smoking. She smoked until the last year, and she told me she carries a diagnosis of COPD. She has chronic respiratory failure. She wears oxygen at 3 liters per minute 29/03. Also, she had history of coronary artery disease, atrial fibrillation. She was admitted to this facility on 11/22/2017 with a chief complaint of atrial fibrillation. She is a resident of correction. She felt short of breath, came to the ER, and actually, she was placed on BiPAP initially, and she is known to have history of coronary artery disease, status post stent placement few weeks ago. She has atrial fibrillation, also she has congestive heart failure, on Lasix. Apparently, she was requiring high amount of oxygen, but last night in the evening hours, she was found unresponsive with hypercapnic respiratory failure. She was placed on BiPAP and transferred to the ICU. This morning, she is on 8 liter oxygen, awake, alert. She reported her breathing is better. She reported she does not think she has wheezes. Her cough is dry, not producing any sputum. She is not sure if she had any fever or lower extremity edema. PAST MEDICAL HISTORY: Chronic respiratory failure, on home oxygen, COPD, ex-smoker. Coronary artery disease, congestive heart failure, chronic kidney disease stage 3, hypertension, hyperlipidemia, anxiety, depression. Also, there is a mention of pulmonary nodule in her records. PAST SURGICAL HISTORY: Colon resection, hysterectomy, chronic kidney disease, emphysema. SOCIAL HISTORY: She smoked until last year. Does not drink alcohol excessively, does not abuse drugs. Lives in a correction. REVIEW OF SYSTEMS: She reported history of weakness, but denied visual changes. Denied nausea, vomiting, diarrhea, change in bowel habits, urine frequency or urgency. Rest of the review of system was negative. PHYSICAL EXAMINATION: VITAL SIGNS: At the time of my evaluation, she was on 8 liters oxygen, O2 saturation 95-97%, blood pressure pulse rate of 85, temperature 36.8. GENERAL: Awake, alert. HEAD: Normocephalic, atraumatic. Pupils equal, reactive to light. Extraocular muscles intact. NECK: Supple. No palpable lymph node. No palpable thyroid. Trachea central. ORAL CAVITY: Moist mucous membrane. Mallampati [place] 2[place] [address] CONSULTATION Name: DIGNAKIMANI Tyler Room: [address]#: [id number] Admission: 11/22/17 Attend Phys: Oscar Hooper Discharge: Date of : 40 Report #: [id number] CHEST: Diminished air movement bilaterally with prolonged expiratory phase, did not hear wheezes, but she has some crackles at the right lung base. HEART: S1, S2, no murmur. ABDOMEN: Benign, soft, lax, nontender, positive bowel sounds. No masses felt. EXTREMITIES: Lower extremity, trace edema, no calf tenderness. Equal bilaterally. SKIN: Normal for age and race, no rash. LYMPHATICS: No palpable lymph node. PSYCHIATRIC: Mood and affect appropriate, calm and quiet. NEUROLOGIC: Moving 4 extremities spontaneously. No focal weakness. LABORATORY DATA: Her white blood count is 9, hemoglobin 9, platelet of 258. The other CBC in the record was reviewed. Her ABGs this morning, 7.37/44/177 and thus improved compared to earlier ABG, 7.19/62/82, when she was found unresponsive last night. Her INR is 1.1. Her creatinine is 1.2 today, it was 1.4 earlier during the hospitalization. Her potassium is 3.7. Her chest x-ray from last night showed area of consolidation in the right lung base, but also she had bilateral pleural effusion, signs of vascular congestion. Her BNP was elevated at 7514. Her V/Q scan did not show evidence of PE. IMPRESSION: 1. Drtbh-cg-aawterr hypoxic and hypercapnic respiratory failure. 2. 3. Pneumonia. 4. Congestive heart failure. 5. Atrial fibrillation. 6. Coronary artery disease. The patient now is tolerating the O2 at 8 liters. Her baseline is at 3 liters per minute. Continue to wean oxygen down, keep BiPAP p.r.n., avoid sedatives, hypnotics. She was seen by Cardiology. I will defer diuresis to Cardiology. I agree with diuresis. Continue antibiotics for the pneumonia and scheduled bronchodilators. I will start her on steroids. It was noted CT of the chest is pending. With a mention of history of pulmonary nodule in her records, I will reevaluate the pulmonary nodule. Thank you for the consult. <ELECTRONICALLY SIGNED> By: Javier Mendes MD 11/26/17 0825 0914 0957MD ofelia Strickland
--- NOTE | 2017-11-26 14:51 | NUR ---
CONSULTED TO PLACE PICC FOR PT ON MULTIPLE IV DRIPS IN ICU WITH POOR IV ACCESS. ORDER AND CONSENT NOTED. SPOKE WITH PT AND FAMILY ABOUT RISK AND BENIFIT. VOICED UNDERSTANDING AND AGREED. RIGHT UPPER ARM BASILIC IDENTIFIED AND NOTED TO BE ADRIANNEABHISHEK MCKENZIELOYDA. A 5FR TRIPLE LUMAN POWER PICC PLACED PER HOSPITAL POLICY. LINE TRIMMED TO 45CM AND ADVANCED TO 0CM EXTERNAL. LINE TIP CONFIRMED WITH SHERLOCK 3CG. LINE SECURED AND RELEASED FOR USE. PRIMARY NURSING AWARE.
--- NOTE | 2017-11-26 19:27 | NUR ---
PATIENT SOB AT END OF SHIFT. TAKING PO WELL.
[2017-11-27 06:54] VITALS: BP 136/68
--- NOTE | 2017-11-27 06:55 | NUR ---
ASSESSMENT AND VS OBTAINED, SEE CHARTING. CARDIAC MONIOTR ON AND TRACING SA. PT WORE THE BIPAP ALL NIGHT WITHOUT ANY TROUBLE BREATHING. PT IS VERY IMPULSIVE.
--- NOTE | 2017-11-27 07:48 | NUR ---
REPORT GIVEN TO HEATHER GÓMEZ. ALL BELONGINGS SENT W/PT. PT TRANSFERRED UPSTAIRS TO ROOM 223 VIA W/CHAIR.
[2017-11-27 08:30] VITALS: BP 169/89
--- NOTE | 2017-11-27 08:30 | NUR ---
REPORT GIVEN PATIENT TRANSFERRED FROM ICU TO 223 PATIENT ORIENTED TO AND CALL LIGHT BED ALARM SET
[2017-11-27 17:32] VITALS: BP 163/77
--- NOTE | 2017-11-27 18:32 | NUR ---
PATIENT SITTING UP REMAINS A AND O X 4, FORGETFUL AND IMPULSIVE AT TIMES SR/FIRST DEGREE AT TIMES O2 5L NC O2 SATS LOW 90S CONT PULSE OX GOOD APPETITE ABD DISTENDED LAST BM TODAY, REPORTED GOOD UO 800CC = INC EPISODE, YELLOW URINE UP WITH 1 ASSIST TO CHAIR IV R UPPER ARM PICC/SL NO C/O PAIN CALL LIGHT IN REACH AND INSTRUCTION GIVEN AND FOLLOWED
[2017-11-27 20:00] VITALS: BP 146/66
[2017-11-28] VITALS (7 sets, daily range): BP systolic 135–164; BP diastolic 61–86
--- NOTE | 2017-11-28 04:22 | NUR ---
ASSUMED CARE OF PT AT 1900 PT ALERT AND ORIENTED VS AND ASSESSMENT STABLE. PT VOICED NO COMPLAINTS AND SLEPT THROUGH THE NIGHT. WILL CONTINUE PLAN OF CARE.
[2017-11-28 04:43] LABS: ABSOLUTE EOSINOPHILS 0.1 thou/uL (0.0-0.7); ABSOLUTE LYMPHOCYTES 0.6 thou/uL (0.8-5.3); ABSOLUTE MONOCYTES 0.6 thou/uL (0.0-1.2); ABSOLUTE NEUTROPHILS 8.6 thou/uL (1.6-8.1); BASOPHILS 0.4 %; EOSINOPHILS 0.5 %; HEMOGLOBIN 7.9 gm/dL (12.0-15.0); LYMPHOCYTES 5.7 %; MCH 26.2 pg (26.0-34.0); MCHC 32.8 g/dL (28.0-37.0); MONOCYTES 6.1 %; MPV 7.9 fl. (7.2-11.1); NUCLEATED RBCS 0 /100WBC; PLATELET COUNT* 270 thou/uL (150-400); POLYS 87.3 %; RDW-CV 17.5 % (10.5-14.5); WBC 9.9 thou/uL (4.0-11.0)
[2017-11-28 05:01] LABS: CALCIUM 9.1 mg/dL (8.5-10.1); CREATININE 1.1 mg/dL (0.6-1.3); POTASSIUM 3.8 mmol/L (3.5-5.1)
--- NOTE | 2017-11-28 07:25 | NUR ---
CHANGE OF SHIFT BEDSIDE REPORT GIVEN ASSUMED PATIENT CARE PATIENT SEEN IN BED SLEEPING BED ALARM SET
--- NOTE | 2017-11-28 17:57 | NUR ---
ASSUMED PT AT 1230 TODAY PT IS ALERT AND ORIENTED X2-3 DOES BECOME CONFUSED AND FORGETFUL NEEDS REASSURANCE 1U OF BLOOD GIVEN OF NOW IV LASIX GIVEN PT VOIDING FREQUENTLY NAZ PICC TRIPLE LUMEN SBA TO BSC ON 4L NC O2 GOES DOWN WITH EATING AND MOVING AROUND DAUGHTER AT BEDSIDE AT THIS TIME DENIES ANY PAIN
[2017-11-29] VITALS: BP 156/75
[2017-11-29 04:20] VITALS: BP 152/75
[2017-11-29 04:37] LABS: ABSOLUTE EOSINOPHILS 0.1 thou/uL (0.0-0.7); ABSOLUTE LYMPHOCYTES 0.6 thou/uL (0.8-5.3); ABSOLUTE MONOCYTES 0.7 thou/uL (0.0-1.2); ABSOLUTE NEUTROPHILS 8.7 thou/uL (1.6-8.1); BASOPHILS 0.5 %; EOSINOPHILS 0.7 %; HEMATOCRIT 28.6 % (37.0-47.0); HEMOGLOBIN 9.5 gm/dL (12.0-15.0); MCH 26.1 pg (26.0-34.0); MCHC 33.1 g/dL (28.0-37.0); MCV 78.8 fL (80.0-100.0); MONOCYTES 6.7 %; MPV 7.9 fl. (7.2-11.1); NUCLEATED RBCS 0 /100WBC; PLATELET COUNT* 271 thou/uL (150-400); POLYS 86.1 %; RBC 3.63 mil/uL (4.20-5.00); RDW-CV 17.2 % (10.5-14.5); WBC 10.1 thou/uL (4.0-11.0)
--- NOTE | 2017-11-29 04:49 | NUR ---
PATIENT PROGRESSING TOWARDS GOALS: PATIENT REMAINS ON 4L O2 NC WITH SATS >92%. PATIENT DENIES SHORTNESS OF BREATH BUT DOES REPORT FEELING ANXIOUS AT TIMES. XANAX ADMINISTERED PER EMAR. PATIENT'S VSS. BODY WORK AUTO TRIMMER TRACING SR. PATIENT DENIES PAIN AND DISCOMFORT. HOURLY ROUNDING OBSERVED. CALL LIGHT WITHIN REACH
[2017-11-29 04:55] LABS: CREATININE 1.6 mg/dL (0.6-1.3); POTASSIUM 3.9 mmol/L (3.5-5.1)
[2017-11-29 08:00] VITALS: BP 144/69
--- NOTE | 2017-11-29 10:00 | NUR ---
Assume care of patient, patient A and O times 4 but is forgetful. Cardio and pulmonology cleared patient. Patient did not show distress. Patient O2 decreased to two liters, tolerated well. CXR showed improvement. Patient made med surg, no longer tele. Up times one to bed side commond, three times, tolerated movement well. Patient did not complain of pain. Possible dc 11/30/2017. 1436 assesment completed by this RN at 0800. Med per MAR. Hourly rounding obsevered. Bed low ponstion, bed alerm in place, call light within reach, will monitor for changes and continue plan of care.
[2017-11-29 11:50] VITALS: BP 142/69
--- NOTE | 2017-11-29 14:21 | NUR ---
MET WITH PT AND SPOKE WITH CHERELLE/RAMIREZ OVER THE PHONE. SHE STATED SHE DID SPEAK WITH THE DR TODAY. PLAN IS FOR PT TO GO TO RAMIREZ'S HOME [place]. RAMIREZ STATES SOMEONE WILL BE WITH PT 'MOST' OF THE TIME. SHE HAS MOVED ALL OF PT'S O2 AND NEB EQUIMENT TO HER HOUSE ALREADY. THEY WANT TO USE [facility] AT DC. WILL FOLLOW AND ASSIST WITH FINAL DC ARRANGEMENTS. PT IS ON O2 2L TODAY. HAS HOME O2
--- NOTE | 2017-11-29 15:07 | CON ---
[address] [address] CONSULTATION Name: DIGNAKIMANI Tyler Room: [address] IN .R.#: [id number] Admission: 11/22/17 Attend Phys: Oscar Hooper Discharge: Date of : 40 Report #: [id number] THIS REPORT FOR: //name// CC: Jose Mitchell DICTATED BY: Roberta VINSON DATE OF SERVICE: 11/26/2017 Please note at the time of this dictation, the patient was seen and physically examined by myself. REASON FOR CONSULTATION: Liver lesion. HISTORY OF PRESENT ILLNESS: This is a 77-year-old female who presented to the Emergency Room with increased shortness of breath that started on the day of admission, which progressively gotten worse and it was noted at that time that her O2 saturation was only 58% and her respiratory rate was 30-40. She had previously been admitted in October for respiratory failure and had a stent placement during that admission as well. The patient has never been told that she has any issues with her liver. She states she did have a colonoscopy years ago, she thinks somewhere in [place]. We will attempt to obtain those records. She did have a colon resection, but she is unclear as to why she had that done at the time of the consultation. She denies any nausea, vomiting, abdominal pain. She states her bowels move daily. They are soft and formed. She has had no evidence of any bright red blood. ALLERGIES: STATINS. MEDICATIONS FROM HOME: Include aspirin, Welchol, Plavix, Zoloft, Norvasc, Livalo, Diovan, Lasix, Coreg, prednisone, Pulmicort, Levaquin, DuoNeb and Xanax. PAST MEDICAL HISTORY: Recent hospitalization with pneumonia and stent placement, congestive heart failure, hypertension, hypercholesterolemia, anxiety, depression, history of a pulmonary nodule, chronic kidney disease. PAST SURGICAL HISTORY: History of a colon resection, hysterectomy, cholecystectomy. FAMILY HISTORY: Significant for breast cancer on maternal side including her mother with numerous aunts and father had prostate cancer. SOCIAL HISTORY: Used to smoke. Denies any alcohol, tobacco or illegal drug use and she is on oxygen at home when she [place] [address] CONSULTATION Name: KIMANI SAWYER Room: [address]#: [id number] Admission: 11/22/17 Attend Phys: Oscar Hooper Discharge: Date of : 40 Report #: [id number] REVIEW OF SYSTEMS: Twelve-point review of systems is essentially negative except what is mentioned in the HPI. PHYSICAL EXAMINATION: VITAL SIGNS: Temperature 36.7, pulse 58, respirations 19, blood pressure 149/53. HEART: She has an irregular rate and rhythm. LUNGS: Diminished, but essentially clear and on oxygen. ABDOMEN: Soft, positive bowel sounds in all 4 quadrants with no masses or tenderness noted. LABORATORY DATA: Hemoglobin 8.1, on admission, she was 9.5 and hematocrit is 23. White count is 9.6, platelets 251. Sodium 140, potassium 2.9, chloride 103, CO2 of 28, BUN is 23, creatinine 1.3, GFR is 40 and glucose is 111. She did have some positive blood cultures. LFTs are normal. CT showed a massive lesion in the right lobe. IMPRESSION: 1. Liver lesion. 2. Chronic obstructive pulmonary disease. 3. Anemia. 4. Hypokalemia. 5. History of previous colectomy, etiology unknown. 6. Strong family history of maternal side including mother of breast cancer and numerous aunts. PLAN: 1. Ultrasound of the abdomen to take a closer look at her liver. 2. AFP, CEA and CA 19-9. 3. Await above results to make further recommendations. 4. Hematology consult pending. 5. We will attempt to see about previous endoscopy studies and get those records. Thank you for allowing us to participate in this patient's care. Please do not hesitate to call with any questions in regard to this consult. <ELECTRONICALLY SIGNED> By: Shelyl Jung MD 11/29/17 1507 1257 1405Shelly Jung MD /nt
--- NOTE | 2017-11-29 15:07 | CON ---
[address] [address] CONSULTATION Name: KIMANI SAWYER Room: [address] IN .R.#: [id number] Admission: 11/22/17 Attend Phys: Oscar Hooper Discharge: Date of : 40 Report #: [id number] THIS REPORT FOR: //name// CC: Jose Mitchell DATE OF SERVICE: 11/26/2017 ADDENDUM The patient who presented to hospital with shortness of air and COPD exacerbation and also has chronic anemia. She had a CT of the chest, which revealed a liver lesion. We were consulted to evaluate this lesion. The patient's liver function tests are completely normal. He denies any abdominal pain or right upper quadrant discomfort. We will order labs and abdominal ultrasound to further define the lesion. We will make further recommendation once we review these. <ELECTRONICALLY SIGNED> By: Shelly Jung MD 11/29/17 1507 1440 1529Shelly Jung MD /nt
[2017-11-29 16:04] VITALS: BP 113/77
--- NOTE | 2017-11-29 18:38 | NUR ---
No acute changes. Patient on two liters of oxygen. Daughter at bedside, patient did not show sings of sob, pain or distress. Call light within reach, bed in low ponsition, bed alerm, hourly rounding.
--- NOTE | 2017-11-29 18:48 | NUR ---
THIS RN AGREES WITH THE CHARTING AND ASSESSMENT COMPLETED BY VANESSA LYNCH ON 11/29/17.
[2017-11-29 20:00] VITALS: BP 136/60
--- NOTE | 2017-11-29 22:00 | NUR ---
RECIEVED REPORT AND ASSUMED CARE OF PATIENT AT 1930. ASSESSMENT AND VITALS COMPLETED CHARTED, VSS. PATIENT A&OX4, FORGETFUL AT TIMES. PATIENT ON 2L O2 WITH SATS >92% AND NO DISTRESS NOTED. PATIENT RESTING COMFORTABLY WITH NO REQUESTS OR CONCERNS. ANTICIPATING DISCHARGE 11/30 IF NO RESPIRATORY DISTRESS NOTED OVERNIGHT. GOAL IS FOR O2 SATURATION TO REMAIN >92% ON 2L NC AND ENCOURAGE COUGH AND DEEP BREATHING FOR IMPROVEMENT IN RESPIRATORY STATUS. CALL LIGHT WITHIN REACH.
[2017-11-30] VITALS: BP 150/66
[2017-11-30 04:29] VITALS: BP 161/77
--- NOTE | 2017-11-30 05:18 | NUR ---
PATIENT PROGRESSING TOWARDS GOALS AND DISCHARGE: PATIENT REMAINS ON 2L O2 NC WITH SATS >92%. NO RESPIRATORY DISTRESS NOTED AND PATIENT DENIES SHORTNESS OF BREATH. PATIENT TOLERATES ACTIVITY WELL AND HAS BEEN UP WITH STAND BY ASSIST TO BEDSIDE COMMODE. HOURLY ROUNDING OBSERVED. CALL LIGHT WITHIN REACH
[2017-11-30 05:33] LABS: HEMATOCRIT 29.7 % (37.0-47.0); HEMOGLOBIN 9.7 gm/dL (12.0-15.0); MCH 26.2 pg (26.0-34.0); MCHC 32.8 g/dL (28.0-37.0); MCV 79.8 fL (80.0-100.0); MPV 8.1 fl. (7.2-11.1); RBC 3.72 mil/uL (4.20-5.00); RDW-CV 17.6 % (10.5-14.5); WBC 11.7 thou/uL (4.0-11.0)
[2017-11-30 05:58] LABS: CALCIUM 9.1 mg/dL (8.5-10.1); CREATININE 1.3 mg/dL (0.6-1.3); MAGNESIUM 1.9 mg/dL (1.8-2.4); POTASSIUM 3.6 mmol/L (3.5-5.1)
[2017-11-30 08:39] VITALS: BP 151/68
[2017-11-30 12:00] VITALS: BP 138/63
--- NOTE | 2017-11-30 12:09 | NUR ---
ASSUMED PATIENT CARE THIS AM AT 7:15. REPORT RECEIVED FROM NURSE. PATIENT IS ALERT, AWAKE, ORIENTED X 4. SLEEPY. OXYGEN ON. ON O2 CONTINUOUS MONITOR SATURATING AT 96. MED/SURG. VITAL SIGNS WITHIN NORMAL LIMIT NO COMPLAINT ABOUT PAIN. BUT DOES COMPLIAN OF ANXIETY. ANXIETY MEDICATION TO BE GIVEN. PLANNING ON DISCHARGE , IV ANTIBIOTICS, OOB WITH PT. FALL EDUCATION PROVIDED. HAD A BOWEL MVT AT 8:00AM. WILL CONTINUE TO MONITOR.
--- NOTE | 2017-11-30 12:35 | NUR ---
ORDERS NOTED FOR DC HOME WITH HH. CALLED AND FAXED ORDERS TO [facility]. MET WITH PT AND CALLED LAURAR/RAMIREZ. PT STILL GOING TO RAMIREZ'S HOME AT [place]. HAS O2. NO OTHER NEEDS ID'D
[2017-11-30 13:10] VITALS: BP 134/76
[2017-11-30] MEDS ORDERED: PREDNISONE 10 M10 M1 PO (13:44)
[2017-11-30] MEDS ORDERED: MUCINEX1200 MG PO (13:57)
[2017-11-30] MEDS ORDERED: SORINE 80 MG TA80 M1 PO (14:14)
--- NOTE | 2017-11-30 16:04 | NUR ---
DISCHARGE ORDERS RECEIVED FOR PT TO BE DISCHARGED TO HOME WITH HH AND OXYGEN. DISCHARGE INSTRUCTIONS, CARE NOTES, SCRIPTS AND FOLLOW UP APPTS GIVEN TO PT. PT COMMUNICATES UNDERSTANDING OF DISCHARGE TEACHING. PICC LINE REMOVED WITH PRESSURE DRESSING PLACED. PT WAS NOT ON TELE. PT TOOK A SHOWER WITH NURSING ASSIST. PT DISCHARGED WITH ALL BELONGINGS AND PAPERWORK VIA WHEELCHAIR AND OXYGEN WITH [employer] TO DAUGHTERS OWN PERSONAL VEHICLE.
== END 2017-11-30 16:36 | disposition home health service (06) | DRG 177 ==
LOC: M.ERS 11:15 → M.2W 12:54 → M.ICU 12:54 → M.TBA-ER 12:54 → M.ICU 13:37 → M.2W 23:24 → M.ICU 23:27 → M.2W 11-23 00:13 → M.ICU 11-23 00:13 → M.2W 11-23 00:28 → M.ICU 11-24 22:17 → M.2W 11-27 08:40
PROVIDERS: Emergency Medicine Emergency Medical Services; Internal Medicine; Internal Medicine Cardiovascular Disease; Nurse Practitioner Family; ADMIT Internal Medicine
PROC: 30233N1 Transfusion of Nonautologous Red Blood Cells into Peripheral Vein, Percutaneous Approach (ICD-10-PCS; principal; 2017-11-28)
DX: J69.0 Pneumonitis due to inhalation of food and vomit (principal); I50.31 Acute diastolic (congestive) heart failure; J96.21 Acute and chronic respiratory failure with hypoxia; J96.22 Acute and chronic respiratory failure with hypercapnia; G93.41 Metabolic encephalopathy; I13.0 Hypertensive heart and chronic kidney disease with heart failure and stage 1 through stage 4 chronic kidney disease, or unspecified chronic kidney disease; N39.0 Urinary tract infection, site not specified; N18.3 Chronic kidney disease, stage 3 (moderate); E78.00 Pure hypercholesterolemia, unspecified; F41.9 Anxiety disorder, unspecified; F32.9 Major depressive disorder, single episode, unspecified; J44.9 Chronic obstructive pulmonary disease, unspecified; I25.10 Atherosclerotic heart disease of native coronary artery without angina pectoris; I48.0 Paroxysmal atrial fibrillation; E78.5 Hyperlipidemia, unspecified; F17.200 Nicotine dependence, unspecified, uncomplicated; D64.9 Anemia, unspecified; E87.6 Hypokalemia; K76.9 Liver disease, unspecified; K58.9 Irritable bowel syndrome, unspecified; I71.4 Abdominal aortic aneurysm, without rupture; R59.1 Generalized enlarged lymph nodes; K76.89 Other specified diseases of liver; Z90.710 Acquired absence of both cervix and uterus; Z90.49 Acquired absence of other specified parts of digestive tract; Z79.899 Other long term (current) drug therapy; Z79.82 Long term (current) use of aspirin; Z88.8 Allergy status to other drugs, medicaments and biological substances; Z98.61 Coronary angioplasty status; Z87.01 Personal history of pneumonia (recurrent); Z82.49 Family history of ischemic heart disease and other diseases of the circulatory system; Z99.81 Dependence on supplemental oxygen

== ENCOUNTER 2019-01-03 17:02 | Inpatient (IN) | payer MEDICARE, OTHER ==
[~2019-01-03] VITALS: Ht 170.2 cm; Wt 75.6 kg
[2019-01-03 17:02] VITALS: BP 161/96
[~2019-01-03 17:02] MED LIST changes: +ALBUTEROL2.5 MG/31 INH; +COREG6.25 MG PO; +MUCINEX1200 MG PO; +PEPCID20 MG PO; +PREDNISONE 10 M10 M1 PO; +SORINE 80 MG TA80 M1 PO; +VITAMIN C500 M2 PO
[2019-01-03 17:49] LABS: HEMATOCRIT 38.8 % (37.0-47.0); HEMOGLOBIN 12.8 gm/dL (12.0-15.0); MCH 27.5 pg (26.0-34.0); MCHC 32.9 g/dL (28.0-37.0); MCV 83.6 fL (80.0-100.0); MPV 8.8 fl. (7.2-11.1); NUCLEATED RBCS 0 /100WBC; PLATELET COUNT* 233 thou/uL (150-400); RBC 4.64 mil/uL (4.20-5.00); RDW-CV 16.8 % (10.5-14.5); WBC 13.8 thou/uL (4.0-11.0)
[2019-01-03] MEDS ORDERED: KLOR-CON 1010 MEQ PO (17:50)
[2019-01-03] MEDS ORDERED: DEMADEX20 MG PO (17:51)
[2019-01-03] MEDS ORDERED: CARTIA XT120 M1 PO (17:51)
[2019-01-03] MEDS ORDERED: DIGOXIN125 MCG PO (17:52)
[2019-01-03] MEDS ORDERED: PRISTIQ100 MG PO (17:52)
[2019-01-03 17:59] LABS: URINE BILIRUBIN NEGATIVE (Negative); URINE BLOOD TRACE (Negative); URINE CLARITY CLEAR; URINE COLOR YELLOW; URINE GLUCOSE-RANDOM TRACE (Negative); URINE KETONES NEGATIVE (Negative); URINE LEUKOCYTES-REFLEX NEGATIVE (Negative); URINE NITRITE-REFLEX NEGATIVE (Negative); URINE PROTEIN 3+ (Negative); URINE UROBILINOGEN 0.2 E.U./dl (0.2-1.0)
[2019-01-03 18:05] LABS: BACTERIA-REFLEX >30 Many /HPF (None Seen); CASTS None Seen /LPF (None Seen); CRYSTALS None Seen /LPF (None Seen); MUCUS 0-3 Light strn/LPF (None Seen); SQUAMOUS 0-3 Few /LPF (0-3); URINE RBC None Seen /HPF (0-2); URINE WBC-REFLEX 6-15 Few /HPF (0-5)
[2019-01-03 18:15] LABS: ABSOLUTE EOSINOPHILS 0.7 thou/uL (0.0-0.7); ABSOLUTE LYMPHOCYTES 0.7 thou/uL (0.8-5.3); ABSOLUTE MONOCYTES 0.3 thou/uL (0.0-1.2); ABSOLUTE NEUTROPHILS 12.1 thou/uL (1.6-8.1); PLATELET ESTIMATE ADEQUATE
[2019-01-03 18:17] LABS: ANION GAP 12 mmol/L (7-16); BUN 29 mg/dL (7-18); CALCIUM 9.5 mg/dL (8.5-10.1); CHLORIDE 100 mmol/L (98-107); CO2 28 mmol/L (21-32); CREATININE 1.8 mg/dL (0.6-1.3); GLUCOSE 246 mg/dL (70-99); POTASSIUM 4.1 mmol/L (3.5-5.1); SODIUM 140 mmol/L (136-145); TROPONIN-I LEVEL <0.06 ng/mL (<0.06)
[2019-01-03 18:20] LABS: PROTIME 10.7 Seconds (9.20-11.50)
[2019-01-03 18:21] LABS: APTT 26.4 Seconds (25.0-31.3)
[2019-01-03 18:23] LABS: ALBUMIN 3.5 g/dL (3.4-5.0); ALKALINE PHOSPHATASE 96 U/L (46-116); NT-PRO BRAIN NAT PEPTIDE 3891 pg/mL (<300); SGOT 13 U/L (15-37); SGPT 28 U/L (30-65); TOTAL BILIRUBIN 0.3 mg/dL (<0.1-1.0); TOTAL PROTEIN 7.2 g/dL (6.4-8.2)
[2019-01-03 19:54] VITALS: BP 168/87
[2019-01-03 20:10] VITALS: BP 174/95
[2019-01-04] VITALS (7 sets, daily range): BP systolic 128–167; BP diastolic 52–104
[2019-01-04 05:07] LABS: ABSOLUTE LYMPHOCYTES 0.2 thou/uL (0.8-5.3); ABSOLUTE MONOCYTES 0.2 thou/uL (0.0-1.2); ABSOLUTE NEUTROPHILS 12.3 thou/uL (1.6-8.1); BASOPHILS 0.1 %; EOSINOPHILS 0.1 %; HEMATOCRIT 37.1 % (37.0-47.0); HEMOGLOBIN 12.1 gm/dL (12.0-15.0); LYMPHOCYTES 1.8 %; MCH 27.6 pg (26.0-34.0); MCHC 32.8 g/dL (28.0-37.0); MCV 84.2 fL (80.0-100.0); MONOCYTES 1.4 %; MPV 9.2 fl. (7.2-11.1); NUCLEATED RBCS 0 /100WBC; PLATELET COUNT* 201 thou/uL (150-400); POLYS 96.6 %; RDW-CV 16.3 % (10.5-14.5); WBC 12.7 thou/uL (4.0-11.0)
[2019-01-04 05:36] LABS: ANION GAP 10 mmol/L (7-16); BUN 29 mg/dL (7-18); CHLORIDE 102 mmol/L (98-107); CHOLESTEROL 132 mg/dL (<200); CO2 26 mmol/L (21-32); CREATININE 1.8 mg/dL (0.6-1.3); GLUCOSE 340 mg/dL (70-99); HDL CHOLESTEROL 38 mg/dL (>40); LDL CHOLESTEROL 66 mg/dL (<100); MAGNESIUM 1.9 mg/dL (1.8-2.4); PHOSPHORUS* 4.5 mg/dL (2.5-4.9); POTASSIUM 4.8 mmol/L (3.5-5.1); SODIUM 138 mmol/L (136-145); TC:HDL 3.5 Ratio (Not establshd); TRIGLYCERIDE 140 mg/dL (<150); VLDL 28 mg/dL (<40)
[2019-01-04 05:37] LABS: SERUM ASSESSMENT Clear
--- NOTE | 2019-01-04 07:39 | NUR ---
REPORT RECEIVED FROM HARIS IN ED @ 1950. PT ARRIVED TO ROOM 228 @ 2004. PT OREINTED TO SELF, BIRTHDAY AND LOCATION. PT ON 5L O2- (DESAT TO 83% ON ROOM AIR). PT RACING AFIB (RATE CONTROLLED) THROUGH THE NIGHT. PT SLEPT THROUGH MOST OF SHIFT. CALL LIGHT IN REACH. HOURLY ROUNDING FOR SAFETY.
--- NOTE | 2019-01-04 08:15 | NUR ---
REC'D REPORT FROM [facility] RN, ASSUMED CARE OF PATIENT APPROX 0730. ORIENTED TO SELF, SITUATION. CONFUSED, FORGETFUL. ASSESSMENT COMPLETE, VS OBTAINED. RESEARCH LABORATORY SPECIALIST IN PLACE, SR. O2 SATS: 94% 2L. NONSKID SOCKS ON BLE WHEN TRANSFERRING OR AMBULATING. BED/CHAIR ALARM ON AT ALL TIMES. CALL LIGHT IN REACH. HOURLY ROUNDINGS FOR PATIENT NEEDS AND SAFETY.
--- NOTE | 2019-01-04 11:04 | EKG ---
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 : 1940 Requested By: Abhilash Quinonez Order Number: [id number] MD: Drew Alvarez Measurements Intervals [place] Rate: 71 P: [place]: QRS: 5 QRSD: 114 T: 220 QT: 377 QTc: 410 Interpretive Statements Atrial fibrillation Probable septal infarct Lateral leads are also involved Baseline wander in lead(s) II,III,aVF Compared to ECG 11/25/2017 11:51:17 Myocardial infarct finding now present atrial fibrillation noted Prolonged QT interval no longer present Electronically Signed On 01-04-2019 11:03:58 CDT by Drew Alvarze [email or web address] <ELECTRONICALLY SIGNED> By: Drew Alvarez MD, [facility] 01/04/19 1103 1725 1725 Drew Alvarez MD, [facility] /EPI
--- NOTE | 2019-01-04 14:15 | NUR ---
ATTEMPTED TO SEE PT X3 TODAY, IN TESTING. WILL SEE TOMORROW
--- NOTE | 2019-01-04 16:00 | 2DMMODE ---
[place] [address] 2 D/M-MODE ECHOCARDIOGRAM Name: KIMANI SAWYER Room: [address] IN [facility]#: [id number] Admission: 01/03/19 Attend Phys: Christal Urena MD Discharge: Date of : 40 Date of Service: 01/04/19 1600 Report #: [id number] THIS REPORT FOR: //name// APPROVED REPORT Study performed: 01/04/2019 14:00:47 EXAM: Comprehensive 2D, Doppler, and color-flow Echocardiogram Patient Location: In-Patient Room #: 228 Status: routine BSA: 1.84 HR: 78 bpm BP: 128/59 mmHg Rhythm: NSR Other Information Study Quality: Good Indications CVA/TIA Echo Enhancing Agent Indication: Rule out Shunt Agent(s) / Amount(s) Used: Agitated Saline 10 cc 2D Dimensions IVSd: 17.70 (7-11mm) LVOT Diam: 18.99 (18-24mm) LVDd: 47.20 mm PWd: 11.45 (7-11mm) Ascending Ao: 35.72 (22-36mm) LVDs: 35.80 (25-40mm) Aortic Root: 32.75 mm Volumes Left Atrial Volume (Systole) LA ESV Index: 66.10 mL/m2 Aortic Valve AoV Peak Sammy.: 1.53 m/s AO Peak Gr.: 9.41 mmHg LVOT Max P.83 mmHg AO Mean Gr.: 4.61 mmHg LVOT Mean P.50 mmHg LVOT Max V: 1.21 m/s AO V2 VTI: 22.34 cm LVOT Mean V: 0.71 m/s LEONIDES (VTI): 2.19 cm2 LVOT V1 VTI: 17.23 [place] [address] 2 D/M-MODE ECHOCARDIOGRAM Name: KIMANI SAWYER Room: [address] IN [facility]#: [id number] Admission: 01/03/19 Attend Phys: Christal Urena MD Discharge: Date of : 40 Date of Service: 01/04/19 1600 Report #: [id number] Mitral Valve MV Mean Gr.: 4.04 mmHg TDI Medial E' Sammy.: 0.07 m/s Lateral E' Sammy.: 0.11 m/s Pulmonary Valve PV Peak Sammy.: 1.01 m/s PV Peak Gr.: 4.09 mmHg Tricuspid Valve RAP Estimate: 10.00 mmHg TR Peak Gr.: 26.86 mmHg RVSP: 36.00 mmHg PA Pressure: 36.00 mmHg Left Ventricle The left ventricle is normal size. There is normal LV segmental wall motion. Moderate septal hypertrophy is present. Left ventricular systolic function is normal. The left ventricular ejection fraction is within the normal range. LVEF is 50-55%. This study is not technically sufficient to allow evaluation of the LV diastolic function due to atrial fibrillation. Right Ventricle The right ventricle is normal size. The right ventricular systolic function is normal. Atria Left atrium is severely dilated. Interatrial septum is intact without evidence of ASD or PFO. The right atrium size is normal. Aortic Valve The aortic valve is normal in structure. No aortic regurgitation is present. There is no aortic valvular stenosis. Mitral Valve There is mitral annular calcification. Trace mitral regurgitation. No evidence of mitral valve stenosis. Tricuspid Valve The tricuspid valve is normal in structure. Mild tricuspid regurgitation. estimated pa pressure 40 mm Hg Pulmonic Valve The pulmonary valve is normal in structure. [place] [address] 2 D/M-MODE ECHOCARDIOGRAM Name: KIMANI SAWYER Room: [address] IN [facility]#: [id number] Admission: 01/03/19 Attend Phys: Christal Urena MD Discharge: Date of : 40 Date of Service: 01/04/19 1600 Report #: [id number] Great Vessels The aortic root is normal in size. IVC is dilated. Pericardium There is no pericardial effusion. <Conclusion> Moderate septal hypertrophy is present. LVEF is 50-55%. Left atrium is severely dilated. Mild tricuspid regurgitation. estimated pa pressure 40 mm Hg Interatrial septum is intact without evidence of ASD or PFO. <ELECTRONICALLY SIGNED> By: Drew Alvarez MD, FACC 01/04/19 1600 1600 99 Drew Alvarez MD, FACC /INF
[2019-01-05] VITALS: BP 154/72
[2019-01-05 04:00] VITALS: BP 124/91
[2019-01-05 04:22] LABS: ABSOLUTE BASOPHILS 0.1 thou/uL (0.0-0.2); ABSOLUTE LYMPHOCYTES 0.5 thou/uL (0.8-5.3); ABSOLUTE MONOCYTES 1.1 thou/uL (0.0-1.2); ABSOLUTE NEUTROPHILS 22.4 thou/uL (1.6-8.1); BASOPHILS 0.2 %; EOSINOPHILS 0.1 %; HEMATOCRIT 39.9 % (37.0-47.0); HEMOGLOBIN 13.1 gm/dL (12.0-15.0); LYMPHOCYTES 2.2 %; MCH 27.8 pg (26.0-34.0); MCHC 32.7 g/dL (28.0-37.0); MONOCYTES 4.7 %; MPV 8.7 fl. (7.2-11.1); NUCLEATED RBCS 0 /100WBC; POLYS 92.8 %; RBC 4.69 mil/uL (4.20-5.00); RDW-CV 16.9 % (10.5-14.5); WBC 24.1 thou/uL (4.0-11.0)
[2019-01-05 04:41] LABS: CALCIUM 9.6 mg/dL (8.5-10.1); CREATININE 1.8 mg/dL (0.6-1.3); POTASSIUM 4.7 mmol/L (3.5-5.1)
[2019-01-05 04:41] LABS: BE -0.1 mmol/L (-2 to +3); PCO2 41.7 mmHg (35.0-45.0); pH 7.393 (7.340-7.450)
[2019-01-05 04:43] LABS: PO2 57.3 mmHg (75.0-100.0)
[2019-01-05 04:47] LABS: PLATELET COUNT* 288 thou/uL (150-400)
[2019-01-05 08:12] VITALS: BP 163/95
[2019-01-05] MEDS ORDERED: XANAX 0.25 MG0.25 MG PO (08:20)
--- NOTE | 2019-01-05 08:28 | NUR ---
ASSUMED PT CARE @ 1930. PT ORIENTED TO SELF AND PLACE AND SITUATION- WITH SOME CONFUSION AND FORGETFULNESS NOTED @ TIMES. PT DENIED ANY DISCOMFORT OR RESP DISTRESS PRIOR TO BEDTIME. PT WOKE UP THIS AM RESTLESS WITH DIFFICULTY SLEEPING. BECAME MORE AND MORE RESTLESS. REQUESTED A BREATHING TX AND REPORTED SOA. PT'S RATE CONTROLED AFIB BECAME UNSTABLE WITH ELEVATED BP AND HR. PT'S 02 SAT IN 80'S DESITE HIGH FLOW O2 INCREASED PER RT. PT CONTINUED TO C/O OF INCREASING SOA AND/OR CONTINUED SOA EVEN WITH RT TREATMENT. AM MEDS TO ASSIST WITH BREATHING/CHF AND ELVEVATED/UNSTABLE RATE OF AFIB GIVEN. SOME IMPROVEMENT NOTED. PT ALSO HAD CRITICAL ABG'S. DR CINTRON NOTIFIED OF ABOVE FINDINGS. ONETIME XANAX AND LASIX ALSO ORDERED AND GIVEN AND PT WAS FINALLY ABLE TO RELAX. O2 SAT MAINTAINED IN 90'S WITH NON-REBREATHER @ 15L O2. RN NOTIFIED DAUGHTER RAMIREZ OF PT'S ANXIETY AND RESPIRATORY DISTRESS. DAUGHTER STATED "SHE DEFINITELY GETS ANXIOUS WHEN SHE'S SHORT OF BREATHE OR VICE VERSA. HER PRN XANAX REALLY HELPS WITH HER BREATHING AND HER ANXIETY." UPDATED PT'S HOME MED LIST WITH XANAX AND DOSEAGE. NOTIFED DAY RN TO PLEASE PASS ON TO PT'S THAT MED LIST WAS UPDATED WITH XANAX AND THAT DAUGHTER IS REQUESTING PT BE ABLE TO TAKE IT FOR HER SOA AND ANXIETY. DAUGHTER ALSO STATED SHE WOULD BRING PT'S HOME MED PRISTIQUE WHEN SHE COMES TO VISIT TODAY. CALL LIGHT IN REACH. HOURLY ROUNDING FOR SAFETY.
--- NOTE | 2019-01-05 09:30 | NUR ---
REC'D REPORT FROM NOC RN, ASSUMED CARE OF PATIENT APPROX 0730. A&OX4. ABLE TO COMMUNICATE NEEDS TO STAFF. ASSESSMENT COMPLETE, VS OBTAINED. COPPER ETCHER IN PLACE, SR. O2 SATS 94% 2L. UP WITH ASSIST FOR TRANSERS AND AMBULATION. CALL LIGHT WITHIN REACH. HOURLY ROUNDING FOR SAFETY AND PATIENT NEEDS.
[2019-01-05 11:56] VITALS: BP 166/80
--- NOTE | 2019-01-05 13:40 | NUR ---
MET WITH PT AND SPOKE WITH LAURAR/RAMIREZ OVER THE PHONE [phone]. SHE WAS AT WORK. PT LIVES WITH RAMIREZ AND PT'S EDILSON/CARYL SAWYER. PER RAMIREZ, PT HAD BEEN DOING PRETTY WELL AT HOME, IS ABLE TO DO HER OWN ADLS AND SOMEONE IS WITH HER AT HOME AT ALL TIMES. CARYL IS THERE AND ABLE TO ASSIST PT NEEDED, RAMIREZ WORKS DURING THE DAY. PT USES CANE OR WALKER PRN. SHE ALSO HAS O2 AND NEBULIZER THRU [facility] BUT ONLY USES BOTH PRN. SHE WAS RECENTLY DC'D FROM [facility] AND WAS IN [facility] IN AUG. UPDATED RAMIREZ ON POC AND CURRENT CONDITION. ANTICIPATE PT WILL BE ABLE TO RETURN HOME AT IN, RAMIREZ NOT SURE THEY WANT HH AGAIN, WILL CONTINUE TO ASSESS NEEDS. RAMIREZ IS DPOA
[2019-01-05 15:44] VITALS: BP 129/73
--- NOTE | 2019-01-05 17:00 | NUR ---
PATIENT'S DAUGHTER RAMIREZ BEAULIEU TO ROOM TO VISIT. PATIENT SITTING IN RECLINER. PATIENT'S DAUGHTER ASKED WHAT TESTING HAD BEEN INITIATED FOR PATIENT. REVIEWED PLAN OF CARE R/T ANTIBIOTIC MEDICATIONS, DIURESING, MONITORING LABS AND USING SLIDING SCALE INSULIN. REPORTED THAT PT/OT AND SPEECH THERAPIST HAVE EVALUATED PATIENT. PATIENT HAD TOLD ROUNDING ADMIN THAT SHE DESIRED A MEETING WITH PHYSICIAN WHEN HER DAUGHTER WAS PRESENT. ASKED PATIENT IF SHE STILL WANTED TO HAVE PHYSICIAN PRESENT WHILE DAUGHTER IS VISITING. PATIENT ASKED HER DAUGHTER THIS QUESTION. DAUGHTER STATES, "NO, I UNDERSTAND BETTER NOW WHAT IS GOING ON." PATIENT AND DAUGHTER HAD BRIEF DISCUSSION ABOUT HOW SURPRISED THEY WERE TO FIND OUT PATIENT HAS HYPERGLYCEMIA. PATIENT AND DAUGHTER STATE THAT PATIENT HAS NEVER BEEN DIAGNOSED WITH DIABETES. DAUGHTER STATES, "WE GET ALL HER LABS DONE AND HER NUMBERS HAVE ALWAYS BEEN GOOD." EDUCATION GIVEN ON PATIENT'S INCREASED THIRST YESTERDAY AND RATIONALE FOR INSULIN SLIDING SCALE. DAUGHTER EXPRESSED UNDERSTANDING OF INFORMATION PRESENTED THROUGH DISCUSSION.
--- NOTE | 2019-01-05 19:12 | CON ---
[address] [address] CONSULTATION Name: DIGNAKIMANI Tyler Room: [address] IN .R.#: [id number] Admission: 01/03/19 Attend Phys: Christal Urena MD Discharge: Date of : 40 Report #: [id number] THIS REPORT FOR: //name// CC: Jose Urena DATE OF SERVICE: 01/04/2019 HISTORY OF PRESENT ILLNESS: This is a 70-year-old female patient who was evaluated by me for altered mental status and headache. I talked to the patient initially. The patient does not provide a good history. I talked to the nurses, then reviewed the records and subsequently was able to reach the patient's daughter and talked to her. This patient has a diagnosis of dementia. Her has to fix meals for her and family does provide support in day-to-day activities. She usually does not get headache. Yesterday, she had severe generalized headache, which was the worst headache of her life. She apparently was more confused than her baseline. She was diagnosed with urinary tract infection and that is being treated and this morning, she is better. REVIEW OF SYSTEMS: Indicate that she has a history of atrial fibrillation. Until about 1 year ago, she used to be on anticoagulation and she was in and out of the hospital because of bleeding and anticoagulation was discontinued. She has a history of pneumonia. She also has multiple other issues including what looks like renal failure with a GFR of only 27. Her blood sugar is 340. It is not clear what her blood sugar runs in the baseline. Her last TSH was normal at 1.3, but it was done in 2018. She did have a stroke in the past, but the family does not think it affected her much. She is on aspirin. Her last LDL is 66. This was her relevant 14-point review of system, which was carried out. PAST MEDICAL HISTORY: Positive for poorly defined history of stroke. FAMILY HISTORY: Negative for early age strokes. SOCIAL HISTORY: She lives with the and family helps her. PHYSICAL EXAMINATION: The patient's examination indicates she does not know what month it is. She knew which hospital she was in. She could not name the president, but ultimately did. Memory is pretty poor. Speech looks intact. Fund of knowledge is diminished. Cranial nerve examination 2-12 looks unremarkable. Strength, sensation, reflexes and tone is symmetrical. Reflexes are diminished as expected with diabetes. There is no meningeal sign in this patient. There is no carotid bruit. She is moderately built individual who does not have any dysmorphic features of eyes, ears and face. Her vision and hearing looks adequate. Pulses are difficult to feel. There is no edema, cyanosis or jaundice. Heart is irregular consistent with atrial fibrillation. No respiratory difficulty or rhonchi was noticed. Her last blood pressure was [facility] [address] [place] [address] CONSULTATION Name: KIMANI SAWYER Tyler Room: [address] IN [facility].#: [id number] Admission: 01/03/19 Attend Phys: Christal Urena MD Discharge: Date of : 40 Report #: [id number] 128/59. Pulse is 69 and temperature is 99.1. She does have increased white count of 12.7 and decreased GFR. IMPRESSION: Most likely, the symptoms are because of encephalopathy caused by urinary tract infection. She is highly predisposed to have stroke because she has atrial fibrillation and she is not able to take anticoagulation. That is a difficult situation to evaluate. This is because the patient has history of multiple bleedings in the past and daughter is aware of the difficulty with situation. She also has multiple other metabolic problems including renal failure and uncontrolled diabetes, which will contribute to the patient's symptoms. RECOMMENDATIONS: 1. Await MRI. 2. EEG. 3. Vitamin B12. 4. We will see how she does with improvement in her urinary tract infection. As far as dementia is concerned, I talked to the patient's daughter about putting her on some Namenda or Aricept, but that need to be done as an outpatient if the family wants. Thank you very much for this referral. More than 50 minutes of time was spent taking care of this patient today and majority of that time was spent counseling and coordinating her care by above. <ELECTRONICALLY SIGNED> By: Ariel Chu MD 01/05/19 1912 0941 [id number] Chu MD /nt
--- NOTE | 2019-01-05 19:12 | EEG ---
[address] [address] EEG STUDY REPORT Name: KIMANI SAWYER Room: [address] IN .R.#: [id number] Admission: 01/03/19 Attend Phys: Christal Urena MD Discharge: Date of : 40 Report #: [id number] THIS REPORT FOR: //name// CC: Jose Urena The patient is being evaluated for altered mental status. EEG was done by placing the electrodes by standard 10-20 system of electrode placement. Both referential and sequential montages were used for recording. Background activity in this patient's EEG is about 7 Hz and 30 microvolt. The patient became sleepy and that is associated with bilateral slowing and vertex sharp waves. Photic stimulation is unremarkable. IMPRESSION: This is an abnormal EEG. It is slow and that is a nonspecific abnormality, which can occur with encephalopathy, effect of psychotropic medication, dementia, etc. Clinical correlation is recommended. <ELECTRONICALLY SIGNED> By: Ariel Chu MD 01/05/19 1912 1545 [id number] Chu MD /nt
[2019-01-06] VITALS: BP 157/90
[2019-01-06 04:00] VITALS: BP 136/76
--- NOTE | 2019-01-06 04:13 | NUR ---
ASSUMED PT CARE @ 1930. NO SOA REPORTED OR OBSERVED. MORE ALERT AND OREIENED THIS SHIFT THAN OBSERVED BY THIS RN THE PAST 2 NIGHT SHIFTS. PT REQUESTED TO WALK AROUD ROOM. STABLE. NO INCREASED SOA REPORTED OR OBSERVED. PT DID REPORT "FEELING TIRED." PT WAS ABLE TO FALL ASLEEP. AND IS RESTING THROUGH THE NIGHT. CALL LIGHT IN REACH. HOURLY ROUNDING FOR SAFETY.
[2019-01-06 05:18] LABS: HEMOGLOBIN 11.3 gm/dL (12.0-15.0); MCHC 33.4 g/dL (28.0-37.0); MCV 83.9 fL (80.0-100.0); MPV 9.2 fl. (7.2-11.1); RBC 4.05 mil/uL (4.20-5.00); RDW-CV 16.9 % (10.5-14.5); WBC 16.1 thou/uL (4.0-11.0)
[2019-01-06 05:36] LABS: CREATININE 2.1 mg/dL (0.6-1.3); POTASSIUM 4.2 mmol/L (3.5-5.1)
[2019-01-06 07:45] VITALS: BP 156/95
[2019-01-06 11:18] VITALS: BP 106/62
[2019-01-06 15:23] VITALS: BP 129/66
--- NOTE | 2019-01-06 18:16 | NUR ---
PT ALERT AND ORIENTED. TELE TRACKING AFIB AND ALL VSS ON 2L. DENIES CP, SOA. UP IN CHAIR FOR MAJORITY OF SHIFT. EDUCATED ON SAFETY AND PLAN OF CARE. PLEASE SEE ASSESSMENT FOR ADDITIONAL INFORMATION. WILL CONTINUE TO MONITOR
[2019-01-06 19:50] VITALS: BP 163/79
[2019-01-06 19:56] LABS: ANION GAP 8 mmol/L (7-16); BUN 52 mg/dL (7-18); CALCIUM 8.6 mg/dL (8.5-10.1); CHLORIDE 98 mmol/L (98-107); CO2 29 mmol/L (21-32); CREATININE 2.4 mg/dL (0.6-1.3); GLUCOSE 341 mg/dL (70-99); PHOSPHORUS* 3.3 mg/dL (2.5-4.9); POTASSIUM 4.7 mmol/L (3.5-5.1); SODIUM 135 mmol/L (136-145); TROPONIN-I LEVEL <0.06 ng/mL (<0.06)
[2019-01-07] VITALS (7 sets, daily range): BP systolic 129–163; BP diastolic 59–86
[2019-01-07 05:21] LABS: HEMATOCRIT 33.4 % (37.0-47.0); HEMOGLOBIN 11.2 gm/dL (12.0-15.0); MCHC 33.4 g/dL (28.0-37.0); MCV 83.8 fL (80.0-100.0); RBC 3.98 mil/uL (4.20-5.00); RDW-CV 16.8 % (10.5-14.5); WBC 12.4 thou/uL (4.0-11.0)
[2019-01-07 05:23] LABS: CREATININE 1.9 mg/dL (0.6-1.3); MAGNESIUM 2.1 mg/dL (1.8-2.4); POTASSIUM 4.3 mmol/L (3.5-5.1)
--- NOTE | 2019-01-07 06:58 | NUR ---
VITALS WNL. SEE MAR. SEE CHARTING. FALL PRECAUTIONS IN PLACE. HOURLY ROUNDING FOR SAFETY.
--- NOTE | 2019-01-07 13:40 | EKG ---
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1940 Requested By: Morgan Mitchell Order Number: [id number] Nikita MD: Drew Alvarez Measurements Intervals [place] Rate: 70 P: [place]: QRS: 12 QRSD: 107 T: 227 QT: 385 QTc: 416 Interpretive Statements Atrial fibrillation Probable anteroseptal infarct Lateral leads are also involved Compared to ECG 01/03/2019 17:25:34 No significant changes Electronically Signed On 01-07-2019 13:40:14 CDT by Drew Alvarez [email or web address] <ELECTRONICALLY SIGNED> By: Drew Alvarez MD, [facility] 01/07/19 1340 09 09 Drew Alvarez MD, FAC /EPI
--- NOTE | 2019-01-07 15:35 | NUR ---
PATIENT ALERT AND ORIENTED X 3-4. CONFUSION AT TIMES. UP FOR MEALS. TYLENOL FOR CHONG. CONT. IV ABX, NO SIGN OF DISTRESS.
--- NOTE | 2019-01-07 16:27 | NUR ---
PATIENT'S BLOOD GLUCOSE ELEVATED AT LUNCH. NEW ORDERS TO GIVE SCHEDULED HUMALOG WITH MEALS. UP WITH ASSISTANCE OF ONE.
[2019-01-08 04:00] VITALS: BP 179/90
[2019-01-08 05:06] LABS: HEMATOCRIT 37.4 % (37.0-47.0); HEMOGLOBIN 12.2 gm/dL (12.0-15.0); MCH 27.6 pg (26.0-34.0); MCHC 32.7 g/dL (28.0-37.0); MCV 84.4 fL (80.0-100.0); MPV 8.8 fl. (7.2-11.1); NUCLEATED RBCS 0 /100WBC; PLATELET COUNT* 226 thou/uL (150-400); RBC 4.42 mil/uL (4.20-5.00); RDW-CV 16.7 % (10.5-14.5); WBC 13.1 thou/uL (4.0-11.0)
[2019-01-08 05:19] LABS: CREATININE 1.6 mg/dL (0.6-1.3); POTASSIUM 3.9 mmol/L (3.5-5.1)
--- NOTE | 2019-01-08 05:29 | NUR ---
PT SLEPT MOST OF SHIFT. ASSESSMENT DOCUMENTED. MEDS GIVEN PER E-MAR. IV PATENT. O2 WORN. CATHETER IN PLACE. PT ANXIOUS AT BEGINING OF SHIFT WANTING TO KNOW WHAT SHE WAS AT THE HOSPITAL FOR AND WHAT HER "PROGNOSIS" WAS. PT REPORTED ABDOMINAL DISCOMFORT BUT WAS UNABLE TO DESCRIBE IT, DISCOMFORT DID DISAPPEAR WITH REPOSITION. TELE MONITOR READING A-FIB. PT HAD 7 BEAT RUN OF V-TACH WHILE SLEEPING. NOTIFIED. WILL CONTINUE WITH PLAN OF CARE.
[2019-01-08 06:37] LABS: ABSOLUTE LYMPHOCYTES 1.6 thou/uL (0.8-5.3); ABSOLUTE MONOCYTES 0.8 thou/uL (0.0-1.2); ABSOLUTE NEUTROPHILS 10.7 thou/uL (1.6-8.1); METAMYELOCYTES 1 %; PLATELET ESTIMATE ADEQUATE
[2019-01-08 06:38] LABS: MICROCYTES 2+; OVALOCYTES 1+
[2019-01-08 12:00] VITALS: BP 135/66
[2019-01-08 15:13] VITALS: BP 115/51
[2019-01-08 16:00] VITALS: BP 135/82
--- NOTE | 2019-01-08 18:56 | NUR ---
PATIENT HAS BEEN UP FOR MEALS. BM TODAY. PLAN FOR DISCHARGE TOMORROW. SWITCHED TO PO ABX. TYL FOR CHONG. ATE ALL OF HER DINNER. DENIES COMPLAINTS OF PAIN OR DISCOMFORT.
[2019-01-08 20:40] VITALS: BP 151/86
[2019-01-09] VITALS: BP 130/72
[2019-01-09 02:05] LABS: GLYCOHEMOGLOBIN (HGB A1C) 8.7 % (4.8-5.6)
[2019-01-09 04:00] VITALS: BP 140/79
[2019-01-09 04:46] LABS: CALCIUM 9.3 mg/dL (8.5-10.1); CREATININE 2.1 mg/dL (0.6-1.3); POTASSIUM 4.4 mmol/L (3.5-5.1)
--- NOTE | 2019-01-09 06:07 | NUR ---
PT SLEPT MOST OF SHIFT. ASSESSMENT DOCUMENTED. MEDS GIVEN PER E-MAR. IV PATENT. NO REPORTS OF PAIN THIS SHIFT. PT STATES THAT SHE FEELS A LOT BETTER SINCE SHE HAD A SHOWER. PT ATE SEVERAL SNACKS THROUGH NIGHT. TELE MONITOR READING A-FIB. WILL CONTINUE WITH PLAN OF CARE.
[2019-01-09 08:00] VITALS: BP 155/89
--- NOTE | 2019-01-09 08:00 | NUR ---
ASSUMED PT CARE AT 0700, PT SITTING UP IN BED, FALL PRECAUTIONS IN PLACE, CALL LIGHT IN REACH. 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 UP WITH ASSIST X1 AND WALKER, LS DIM, O2 100% ON 1LPM VIA NC, 98% RA. DENIES ANY PAIN/SOA, PT TO HAVE REPEAT CHEST XRAY THIS SHIFT. WILL CONT POC.
--- NOTE | 2019-01-09 09:59 | NUR ---
RECEIVED CALL FROM PT'S DTR/RAMIREZ BEAULIEU [phone] RE: TO TALK WITH VOICED CONCERNS ABOUT PT BEING 'SLEEPY' AND WORRIED ABOUT DC POSSIBLY TODAY. PLAN IS FOR PT TO RETURN HOME WITH FAMILY. DISCUSSED POC AND MEDS, DTR ALSO STATED PT WAS 'NOT DIABETIC' AND DOESN'T TAKE MEDS BUT SHE KNEW PT HAD BEEN ON IN THE HOSPITAL. NOTIFIED DR CINTRON THAT DTR WOULD LIKE TO SPEAK WITH
[2019-01-09 12:00] VITALS: BP 134/91
[2019-01-09 16:00] VITALS: BP 116/71
--- NOTE | 2019-01-09 18:24 | NUR ---
PT UP IN CHAIR FOR ALL MEALS, FALL PRECAUTIONS IN PLACE. PT HAS BECOME INCREASINGLY LETHARGIC IN AFTERNOON WITH INCREASED FORGETFULNESS WHICH DAUGHTER STATES IS NOT BASELINE FOR PT. DENIES ANY PAIN/SOA, REMAINS AFIB ON MONITOR. REPEAT CHEST XRAY SHOWS MINIMAL CHANGES, LS CLEAR TO DIMINISHED. LYNCH PATENT AND DRAINING DARK YELLOW URINE.
[2019-01-09 20:00] VITALS: BP 138/84
--- NOTE | 2019-01-09 20:00 | NUR ---
RECEIVED REPORT AND ASSUMED CARE OF PT, ASSESSMENT COMPLETED. PT ORIENTED X4 BUT FORGETFUL AND FLAT AFFECT. MOVING SELF IN BED FOR COMFORT. CRIS PATENT. TELEMETRY ON SHOWING A-FIB. WILL CONT TO MONITOR AND ASSIST NEEDED.
[2019-01-10] VITALS: BP 127/73
[2019-01-10 04:00] VITALS: BP 149/87
[2019-01-10 05:35] LABS: HEMATOCRIT 39.5 % (37.0-47.0); MCH 27.5 pg (26.0-34.0); MCHC 32.8 g/dL (28.0-37.0); MCV 83.8 fL (80.0-100.0); MPV 8.7 fl. (7.2-11.1); RBC 4.72 mil/uL (4.20-5.00); RDW-CV 17.4 % (10.5-14.5); WBC 20.1 thou/uL (4.0-11.0)
--- NOTE | 2019-01-10 06:09 | NUR ---
SLEPT WELL TONIGHT. NO CHANGE IN ASSESSMENT. TELEMETRY CONT TO SHOW A-FIB. HOURLY ROUNDING OBSERVED. HS GOALS OF REST AND SAFETY ACHIEVED.
[2019-01-10 06:29] LABS: CALCIUM 9.6 mg/dL (8.5-10.1); CREATININE 1.9 mg/dL (0.6-1.3); MAGNESIUM 2.3 mg/dL (1.8-2.4); POTASSIUM 4.2 mmol/L (3.5-5.1)
[2019-01-10 11:41] LABS: URINE BILIRUBIN NEGATIVE (Negative); URINE BLOOD NEGATIVE (Negative); URINE CLARITY CLEAR; URINE COLOR YELLOW; URINE GLUCOSE-RANDOM NEGATIVE (Negative); URINE KETONES NEGATIVE (Negative); URINE LEUKOCYTES-REFLEX NEGATIVE (Negative); URINE NITRITE-REFLEX NEGATIVE (Negative); URINE PROTEIN TRACE (Negative); URINE SPECIFIC GRAVITY <= 1.005 (1.005-1.030); URINE UROBILINOGEN 0.2 E.U./dl (0.2-1.0)
--- NOTE | 2019-01-10 14:00 | NUR ---
Nutrition: Pt assessed for LOS. Admitted with AMS, UTI. H/o COPD, DM II, HTN, IBS, CVA. CHF - resolved. Eating 80-100% of CHO controlled diet. Wt stable, 166#. Labs: elevated WBC, BG fluctuates 65-203, albumin 3.5. Insulin and glipizide. +BM yday. No nutrition interventions needed at this time. GOALS: tight BG control, good po intake. Mild risk.
[2019-01-10 14:16] VITALS: BP 131/77
--- NOTE | 2019-01-10 18:42 | NUR ---
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 VSS, RA, LS DIMINISHED TO CLEAR. CONT TO WORK WITH PT/OT, ATTEMPTED TO REFUSE THERAPY THIS DAY, PT EDUCATED ON IMPORTANCE OF THERAPY AND NOT LAYIN IN BED ALL DAY. PT THEN C/O "HURTING ALL OVER" BUT UNABLE TO DESCRIBE PAIN OR RATE PAIN. PRN TYLENOL ADMINISTERED. HOURLY ROUNDING COMPLETED.
[2019-01-10 20:00] VITALS: BP 133/69
[2019-01-11] VITALS: BP 147/60
--- NOTE | 2019-01-11 02:01 | NUR ---
PT ALERT ORIENTED. UP TO BSC WITH STD BY ASSIST. PT IMPULSIVE AND GETS OOB WITHOUT CALLING NURSE. BED ALARM ON. PT REMINDED TO CALL NURSE WHEN GETTING OOB. TELEMETRY SHOWS AFIB RATE CONTROLLED 80S. DENIES PAIN. DENIES CHONG.
[2019-01-11 04:00] VITALS: BP 135/86
--- NOTE | 2019-01-11 04:25 | NUR ---
PT STATED SHE HAD A CHONG 03/15. TYLENOL GIVEN.
[2019-01-11 05:42] LABS: HEMATOCRIT 35.8 % (37.0-47.0); HEMOGLOBIN 11.6 gm/dL (12.0-15.0); MCH 27.3 pg (26.0-34.0); MCHC 32.4 g/dL (28.0-37.0); MCV 84.2 fL (80.0-100.0); MPV 9.1 fl. (7.2-11.1); RBC 4.25 mil/uL (4.20-5.00); RDW-CV 17.3 % (10.5-14.5); WBC 15.9 thou/uL (4.0-11.0)
[2019-01-11 05:48] LABS: CALCIUM 9.5 mg/dL (8.5-10.1); CREATININE 1.8 mg/dL (0.6-1.3); MAGNESIUM 2.2 mg/dL (1.8-2.4); POTASSIUM 4.9 mmol/L (3.5-5.1)
[2019-01-11 09:11] LABS: ALBUMIN 2.7 g/dL (3.4-5.0); DIRECT BILIRUBIN 0.1 mg/dL (<0.1-0.3); TOTAL BILIRUBIN 0.3 mg/dL (<0.1-1.0)
--- NOTE | 2019-01-11 09:25 | NUR ---
RECEIVED CALL FROM PT'S LAURAR/RAMIREZ INQUIRING ABOUT POC. SPOKE WITH DR CINTRON. UPDATE CALLED BACK TO DTR. THEY ARE IN AGREEMENT WITH HH [facility] NOW WITH [facility]. CALLED AND FAXED INITIAL REF. TO [facility]. THEY WILL NEED CALLED AND ORDERS FAXED AT ME. [facility] [phone] FAX [phone]
[2019-01-11 09:27] VITALS: BP 135/86
[2019-01-11 11:42] VITALS: BP 129/73
--- NOTE | 2019-01-11 15:32 | NUR ---
ASSUMED PT CARE AT 0730, PT AOX3 CONFUSED. UP WITH ASSIST, USES WALKER. PT O2 SAT AT 90'S RA. PT COMPLAINS OF HEADACHE. TRACING AFIB ON AERIAL ADVERTISER. PT FOR ACCU CHECK. PT FOR CT ABDOMEN. LAST BM TODAY. PT IV ACCESS INTACT SL. VSS, AM ASSESSMENT. MEDS GIVEN PER NOV. CALL LIGHT WITHIN REACH, HOURLY ROUNDING. WILL CONTINUE TO MONITOR.
[2019-01-11 15:40] VITALS: BP 107/53
--- NOTE | 2019-01-11 17:11 | NUR ---
I HAVE REVIEWED AND AGREE WITH THE ASSESMENT AND NOTE OF ERICKSON Lock RN ON 01/11/19
[2019-01-11 19:30] VITALS: BP 127/59
--- NOTE | 2019-01-11 19:40 | NUR ---
PT AOX3, CONFUSED. PT O2 SAT AT 90'S RA. PT UP WITH ASSIST, USES WALKER. STILL TRACING AFIB ON TELE PT FOR POST VOID SCAN. PT HAD CT ABDOMEN. PT FOR ACCU CHECK. LAST BM TODAY. IV ACCESS INTACT. BED ALARM ALL NEED MET AT THIS TIME. GIVE REPORT TO BLU ROMERO. WILL CONTINUE TO MONITOR
[2019-01-12] VITALS: BP 123/63
--- NOTE | 2019-01-12 03:42 | NUR ---
RECIEVED REPORT AND ASSUMED CARE AT 1900. [facility] MONITOR IN PL[facility]. VITAL SIGNS STABLE. PT IS UP WITH ASSIST X 1. PT DENIES ANY PAIN AT THIS TIME. ASSESSMENT COMPLETED DISCUSSED PLAN OF CARE AND PT UNDERSTANDS. BED LOCKED, ALARM ON AND CALL LIGHT WITHIN REACH. FALL PRECAUTIONS IN PLACE. HOURLY ROUNDING DONE AND ALL NEEDS MET. NURSING WILL CONTINUE TO MONITOR.
[2019-01-12 04:00] VITALS: BP 104/44
[2019-01-12 05:40] LABS: ABSOLUTE BASOPHILS 0.1 thou/uL (0.0-0.2); ABSOLUTE EOSINOPHILS 0.1 thou/uL (0.0-0.7); ABSOLUTE LYMPHOCYTES 0.5 thou/uL (0.8-5.3); ABSOLUTE MONOCYTES 0.9 thou/uL (0.0-1.2); ABSOLUTE NEUTROPHILS 14.7 thou/uL (1.6-8.1); BASOPHILS 0.3 %; EOSINOPHILS 0.9 %; HEMATOCRIT 34.5 % (37.0-47.0); HEMOGLOBIN 11.5 gm/dL (12.0-15.0); LYMPHOCYTES 3.2 %; MCHC 33.4 g/dL (28.0-37.0); MCV 83.9 fL (80.0-100.0); MONOCYTES 5.7 %; MPV 9.2 fl. (7.2-11.1); NUCLEATED RBCS 0 /100WBC; PLATELET COUNT* 178 thou/uL (150-400); POLYS 89.9 %; RBC 4.11 mil/uL (4.20-5.00); RDW-CV 17.6 % (10.5-14.5); WBC 16.4 thou/uL (4.0-11.0)
[2019-01-12 05:53] LABS: ALBUMIN 2.6 g/dL (3.4-5.0); CALCIUM 9.4 mg/dL (8.5-10.1); CREATININE 1.8 mg/dL (0.6-1.3); MAGNESIUM 2.3 mg/dL (1.8-2.4); POTASSIUM 5.5 mmol/L (3.5-5.1); TOTAL BILIRUBIN 0.5 mg/dL (<0.1-1.0); TOTAL PROTEIN 6.1 g/dL (6.4-8.2)
[2019-01-12 08:00] VITALS: BP 144/74
[2019-01-12 11:30] VITALS: BP 122/60
--- NOTE | 2019-01-12 12:24 | CON ---
[address] [address] CONSULTATION Name: DIGNAKIMANI Tyler Room: [address] IN M.R.#: [id number] Admission: 01/03/19 Attend Phys: Christal Urena MD Discharge: Date of : 40 Report #: [id number] THIS REPORT FOR: //name// CC: Dayne Urena DATE OF SERVICE: 01/11/2019 INFECTIOUS DISEASE CONSULTATION: ATTENDING PHYSICIAN: Dr. Urena. REASON FOR EVALUATION: Persistent leukocytosis in the setting of ongoing encephalopathy. HISTORY OF PRESENT ILLNESS: Chart reviewed, patient examined. This is a 78-year-old with fairly extensive medical history, does have known advanced lung disease as well as cardiomyopathy, who was admitted through the Emergency Room with complaints of headache back on 01/03/2019, did have marked encephalopathy as well. It was apparent she was not conversant. It is not clear if she had any orientation. She was found to have positive urine culture with Klebsiella pneumonia that was in vitro resistant only to ampicillin. She has been on therapy initially with ceftriaxone and azithromycin, transitioned to Augmentin at this point. Followup urinalysis was generally unremarkable. Initial white count was mildly elevated at 13.8. It peaked at 24, now more recently it has been up and now down to 15.9. She is unable to give any particular history. She does arouse. She seems to know that she is at [place] and that I can really get very few details. She does not recall how well she is eating. Denies any particular dyspnea. No GI related complaints. ALLERGIES: LISTED TO STATINS. MEDICATIONS: Include torsemide, glipizide, Augmentin, spironolactone, enoxaparin, pantoprazole, diltiazem CD, aspirin, carvedilol, insulin, ipratropium and albuterol inhaler. PAST MEDICAL HISTORY: As noted above, history of O2 requiring COPD with emphysematous component, cardiomyopathy, history of congestive heart failure, abdominal aortic aneurysm, hypertension, high cholesterol, anxiety, depression, previous colon resection, hysterectomy and cholecystectomy. SOCIAL HISTORY: Former smoker. No ethanol, no illicit drug use. FAMILY HISTORY: Noncontributory. REVIEW OF SYSTEMS: [place] [address] CONSULTATION Name: KIMANI SAWYER Room: [address]#: [id number] Admission: 01/03/19 Attend Phys: Christal Urena MD Discharge: Date of : 40 Report #: [id number] PHYSICAL EXAMINATION: GENERAL: The patient is sitting up in chair. She slumped over. She does arouse. She seems to make eye contact. She appears chronically ill, undernourished. VITAL SIGNS: Temperature 97.9 without recent fevers, pulse of 60, respirations 16, blood pressure 129/73. SKIN: Warm. She is pale. HEENT: Normocephalic. Extraocular muscles intact. NECK: Supple. LUNGS: Diminished breath sounds. HEART: Regular. I do not appreciate murmur. ABDOMEN: Soft, nontender. There are no peritoneal signs. GENITOURINARY AND RECTAL: Deferred. LABORATORY DATA: CT abdomen and pelvis showed a right hepatic lobe liver cysts 19 x 7 x 14.6 cm, small left pleural effusion, trace ascites, mild scattered colonic diverticulosis, previous cholecystectomy and hysterectomy. Hepatic panel was otherwise unremarkable. Albumin of 2.7, total protein 6.0. CBC: White count of 15.9, H and H 11.6 and 35.8, platelets of 187. CT of the chest showed no pulmonary masses, exception of a small, perhaps granuloma. Urinalysis in followup was otherwise unremarkable. ASSESSMENT AND PLAN: 1. Leukocytosis and encephalopathy. The patient presented over a week ago. She had been treated effectively with antibiotics. It is not quite clear what is driving the leukocytosis. She has not had diarrhea, I am concerned about Clostridium difficile colitis in this setting. We will discontinue the antibiotics, would be concerned about adverse drug effect, now only Augmentin. We will repeat the CBC, see if the white count trends down. At this point, I do not see any focal signs of pyogenic infection. We will monitor expectantly. <ELECTRONICALLY SIGNED> By: Cedric Abraham MD 01/12/19 1224 [id number] Abraham MD /nt
[2019-01-12 16:00] VITALS: BP 147/79
[2019-01-12 16:39] LABS: CALCIUM 9.4 mg/dL (8.5-10.1); CREATININE 2.1 mg/dL (0.6-1.3); POTASSIUM 4.8 mmol/L (3.5-5.1)
--- NOTE | 2019-01-12 18:17 | NUR ---
ASSUMED PT CARE AT 0730, AOX3, CONFUSED. SBA WITH WALKER. O2 SAT AT 90'S RA. TRACING AFIB ON CONING MACHINE OPERATOR. PT DENIES ANY PAIN. PT FOR ACCU CHECK. PT FOR POST VOID. PT IV ACCESS INTACT. LUNGS SOUND CLEAR. VSS, AM ASSESSMENT CHARTED, BED ALARM, CALL LIGHT WITHIN REACH. WILL CONTINUE TO MONITOR.
--- NOTE | 2019-01-12 19:47 | NUR ---
I HAVE REVIEWED AND AGREE WITH THE CHARTING OF ERICKSON Lock RN ON 01/12/19
[2019-01-12 20:10] VITALS: BP 137/71
[2019-01-13] VITALS (7 sets, daily range): BP systolic 95–141; BP diastolic 48–80
--- NOTE | 2019-01-13 05:05 | NUR ---
PT IS STABLE THE WHOLE NIGHT STILL AFIB. COMPLAINED OF LEFT ABDOMINAL PAIN AND MPRN MEDS GIVEN. NO RESPIRATORY DISTRESS AND OCCASIONAL CONFUSED.
[2019-01-13 11:40] LABS: HEMATOCRIT 33.8 % (37.0-47.0); HEMOGLOBIN 11.4 gm/dL (12.0-15.0); MCH 28.4 pg (26.0-34.0); MCHC 33.6 g/dL (28.0-37.0); MCV 84.5 fL (80.0-100.0); NUCLEATED RBCS 0 /100WBC; PLATELET COUNT* 183 thou/uL (150-400); RDW-CV 17.2 % (10.5-14.5); WBC 10.7 thou/uL (4.0-11.0)
[2019-01-13 11:44] LABS: CALCIUM 9.2 mg/dL (8.5-10.1); CREATININE 2.1 mg/dL (0.6-1.3); POTASSIUM 4.7 mmol/L (3.5-5.1)
[2019-01-13 12:09] LABS: ABSOLUTE EOSINOPHILS 0.2 thou/uL (0.0-0.7); ABSOLUTE LYMPHOCYTES 0.3 thou/uL (0.8-5.3); ABSOLUTE MONOCYTES 0.3 thou/uL (0.0-1.2); ABSOLUTE NEUTROPHILS 9.8 thou/uL (1.6-8.1)
[2019-01-13 12:10] LABS: ANISOCYTOSIS 1+; OVALOCYTES Occasional; PLATELET ESTIMATE ADEQUATE; POIKILOCYTOSIS 1+
--- NOTE | 2019-01-13 17:15 | NUR ---
RECEIVED REPORT FROM JOE ROMERO. ASSUMED CARE OF PT AROUND 0730. PT AWAKE BUT DROWSY. ORIENTED TO PERSON, PLACE AND TIME, NOT SIUTATION. CONFUSED. FLAT AFFECT. VSS. SUSTAINABILITY EXECUTIVE DIRECTOR IN PLACE TRACING AFIB WITH NO CHANGES THIS SHIFT. AM ASSESSMENT AND VITALS COMPLETED CHARTED. NEW IV STARTED TO LEFT AC; MEDS PER EMAR. PT WORKED WITH OT THIS SHIFT, BUT REFUSED PT STATING SHE WAS "TOO TIRED". PT ABLE TO SIT UP FOR MEALS. POST VOID BLADDER SCAN COMPLETED. FAMILY AT BEDSIDE THIS EVENING. PT HAS DENIED PAIN OR DISCOMFORT THIS SHIFT. PT CURRENTLY VISITING IN ROOM WITH FAMILY, WAITING FOR DINNER. FALL PRECAUTIONS IN PLACE. CALL LIGHT IS WITHIN REACH. HOURLY ROUNDING PERFORMED. WCTM FOR DURATION OF SHIFT.
--- NOTE | 2019-01-13 20:00 | NUR ---
RECEIVED REPORT AND ASSUMED CARE OF PT, ASSESSMENT COMPLETED. PT CONFUSED, ASKING WHAT TIME IT WAS AND CAN SHE GO HOME. ATTEMPTED TO REORIENTATE. TELEMETRY ON SHOWING A-FIB. WILL CONT TO MONITOR AND ASSIST NEEDED.
[2019-01-14 04:00] VITALS: BP 127/67
[2019-01-14 05:09] LABS: HEMATOCRIT 32.2 % (37.0-47.0); HEMOGLOBIN 10.7 gm/dL (12.0-15.0); MCH 28.1 pg (26.0-34.0); MCHC 33.2 g/dL (28.0-37.0); MCV 84.7 fL (80.0-100.0); MPV 9.3 fl. (7.2-11.1); RBC 3.8 mil/uL (4.20-5.00); RDW-CV 17.7 % (10.5-14.5); WBC 9.9 thou/uL (4.0-11.0)
[2019-01-14 05:28] LABS: CALCIUM 9.2 mg/dL (8.5-10.1); CREATININE 1.8 mg/dL (0.6-1.3); MAGNESIUM 2.4 mg/dL (1.8-2.4)
--- NOTE | 2019-01-14 05:40 | NUR ---
SLEPT WELL TONIGHT. UP TO BSC WITH ASSIST, VOIDING WITHOUT DIFFICULTY. NO CHANGE IN ASSESSMENT. TELEMETRY CONT TO SHOW A-FIB. HS GOALS OF REST AND SAFETY ACHIEVED. HOURLY ROUNDING OBSERVED.
[2019-01-14 08:00] VITALS: BP 138/81
[2019-01-14 14:53] VITALS: BP 130/66
--- NOTE | 2019-01-14 16:34 | NUR ---
PT RESTING IN BED THROUGHOUT SHIFT. PT REPOSTIONED SELF FREQUENTLY. NSR ON MONITOR. PT CALLS APPROPRIATELY FOR ASSIST. PT PLEASANTLY CONFUSED.
[2019-01-14 16:36] VITALS: BP 92/63
[2019-01-14 20:38] VITALS: BP 134/79
[2019-01-15 00:55] VITALS: BP 122/79
[2019-01-15 04:00] VITALS: BP 124/61
--- NOTE | 2019-01-15 07:45 | NUR ---
PT IS ABLE TO COMMUNICATE HER NEEDS TO STAFF WITH MINOR DIFFICULTY; SHE IS [id number] AND ORIENTED ONLY TO SELF. CURRENT PAIN MEDICATION REGIMEN HAS BEEN ADEQUATE FOR CONTROLLING HER PAIN UP TO THIS TIME. POSSIBLE DISCHARGE LATER TODAY OR TOMORROW.
[2019-01-15 08:00] VITALS: BP 143/85
[2019-01-15 08:49] VITALS: BP 143/85
[2019-01-15] MEDS ORDERED: HOME MEDICATION PO (11:26)
[2019-01-15] MEDS ORDERED: SPIRONOLACTONE25 MG PO (11:26)
[2019-01-15] MEDS ORDERED: GLUCOTROL5 MG PO (11:26)
--- NOTE | 2019-01-15 15:55 | NUR ---
DTR EDUCATED ON HOW TO CHECK BLOOD SUGARS AND KEEP LOG TO GIVE TO PCP THIS WEEK. GLUCOMETER PROVIDED AND DTR INSTRUCTED ON USE. PT PROVIDED WITH NEW DIABETIC INFO PACKET. DC INSTRUCTIONS REVIEWED. PT TAKEN TO CAR VIA WC
--- NOTE | 2019-01-15 16:09 | CON ---
[address] [address] CONSULTATION Name: DIGNAKIMANI Tyler Room: [address] IN .R.#: [id number] Admission: 01/03/19 Attend Phys: Christal Uerna MD Discharge: Date of : 40 Report #: [id number] THIS REPORT FOR: //name// CC: Jose Urena DICTATED BY: Roberta Núñez [facility] DATE OF SERVICE: 01/13/2019 Please note at the time of this dictation, the patient was seen and physically examined by myself. REASON FOR CONSULTATION: Hepatic cyst. HISTORY OF PRESENT ILLNESS: This is a 78-year-old female who presented to the Emergency Room with a headache by her daughter who felt that her speech, she was not finding her words and that was a headache the worst of her life and she had an altered mentation as well. The patient was hospitalized back in June, I believe at [facility]. She had one EGD and colonoscopy for anemia. I do not know what those findings showed at this time. She did notice to have a hepatic cyst at last hospitalization in 11/2017. We are asked to see regarding that, no further workup was warranted. AFP was negative. It was felt that was benign and we are reconsulted again because it is enlarged. ALLERGIES: STATINS. MEDICATIONS: From home include aspirin, Livalo, Coreg, potassium, diltiazem, Demadex, Pristiq and Lanoxin. PAST MEDICAL HISTORY: CHF, AAA, hypertension, hypercholesterolemia, anxiety, depression, pulmonary nodule, chronic kidney disease, emphysema. She wears 2 liters of oxygen at home. PAST SURGICAL HISTORY: Colon resection, hysterectomy, cholecystectomy. FAMILY HISTORY: Present of breast cancer in family members. SOCIAL HISTORY: Former smoker. Denies any alcohol or illegal drug use. REVIEW OF SYSTEMS: Twelve-point review of systems is essentially negative except what is mentioned in the HPI. PHYSICAL EXAMINATION: VITAL SIGNS: Temperature 36.9, pulse 77, respirations 16, [place] [address] CONSULTATION Name: DIGNAIKMANI Tyler Room: [address]#: [id number] Admission: 01/03/19 Attend Phys: Christal Urena MD Discharge: Date of : 40 Report #: [id number] 147/80. HEART: Regular rate and rhythm. LUNGS: Diminished, but clear. ABDOMEN: Soft, positive bowel sounds in all 4 quadrants with no masses or tenderness noted to touch. LABORATORY DATA: Hemoglobin 11.4, white count is 10.7, platelets 183. GFR is 23. LFTs are completely normal. CT of the abdomen and pelvis shows this liver to be normal size, but she has a very large cyst on the right lobe that is 19.7 x 14.6 x 22.4 cm, which is enlarged from last year. Otherwise, negative. IMPRESSION: 1. Hepatic cyst. 2. History of anemia. 3. Altered level of consciousness. 4. History of atrial fibrillation. 5. Chronic obstructive pulmonary disease. 6. Chronic kidney disease. PLAN: 1. We will defer further recommendations to Dr. Watson if he is able to review her scans. Please note AFP in 11/2017 was negative in November and no further recommendation was made at that time. Thank you for allowing us to participate in this patient's care. Please do not hesitate to call with any questions in regard to this consult. I have reviewed the relevant labs and imaging. The patient appears to have a very large hepatic cyst. Asymptomatic hepatic cysts do not need any follow up or treatment. This cyst is quite large and may cause pressure atrophy of the right lobe. However, she appears to have poor cardiac and overall functional status. Will have the patient referred to Dr. Ramirez, transplant surgeon from . Kris Watson MD <ELECTRONICALLY SIGNED> By: Kris Watson MD 01/15/19 1609 1214 0336Kris Watson MD /nt
--- NOTE | 2019-01-16 08:26 | NUR ---
CALL TO [facility] AT HOME TO CONFIRM RECEIVED DC ORDERS. THEY DID NOT. FAXED FACE SHEET AND DC ORDERS TO THEM
== END 2019-01-15 16:00 | disposition home health service (06) | DRG 177 ==
LOC: M.ERS 17:02 → M.TBA-ER 18:27 → M.2W 18:27
PROVIDERS: Family Medicine; Internal Medicine; ADMIT Family Medicine
DX: J15.6 Pneumonia due to other Gram-negative bacteria (principal); J96.21 Acute and chronic respiratory failure with hypoxia; G93.41 Metabolic encephalopathy; R65.11 Systemic inflammatory response syndrome (SIRS) of non-infectious origin with acute organ dysfunction; I50.33 Acute on chronic diastolic (congestive) heart failure; J44.1 Chronic obstructive pulmonary disease with (acute) exacerbation; I13.0 Hypertensive heart and chronic kidney disease with heart failure and stage 1 through stage 4 chronic kidney disease, or unspecified chronic kidney disease; N39.0 Urinary tract infection, site not specified; I42.9 Cardiomyopathy, unspecified; N18.4 Chronic kidney disease, stage 4 (severe); D68.59 Other primary thrombophilia; J44.0 Chronic obstructive pulmonary disease with (acute) lower respiratory infection; N17.9 Acute kidney failure, unspecified; I70.90 Unspecified atherosclerosis; E11.65 Type 2 diabetes mellitus with hyperglycemia; T38.0X5A Adverse effect of glucocorticoids and synthetic analogues, initial encounter; Y92.89 Other specified places as the place of occurrence of the external cause; I48.2 Chronic atrial fibrillation; K58.9 Irritable bowel syndrome, unspecified; F03.90 Unspecified dementia, unspecified severity, without behavioral disturbance, psychotic disturbance, mood disturbance, and anxiety; E11.22 Type 2 diabetes mellitus with diabetic chronic kidney disease; K76.89 Other specified diseases of liver; F32.9 Major depressive disorder, single episode, unspecified; F41.9 Anxiety disorder, unspecified; E78.00 Pure hypercholesterolemia, unspecified; Z90.710 Acquired absence of both cervix and uterus; Z90.49 Acquired absence of other specified parts of digestive tract; Z79.82 Long term (current) use of aspirin; Z88.8 Allergy status to other drugs, medicaments and biological substances; Z87.891 Personal history of nicotine dependence; Z80.3 Family history of malignant neoplasm of breast; Z99.81 Dependence on supplemental oxygen

== ENCOUNTER 2020-04-28 04:26 | Inpatient (IN) | payer MEDICARE, OTHER ==
[~2020-04-28] VITALS: Ht 165.1 cm; Wt 81.3 kg
[~2020-04-28 04:26] MED LIST changes: +CARTIA XT120 M1 PO; +DEMADEX20 MG PO; +DIGOXIN125 MCG PO; +GLUCOTROL5 MG PO; +HOME MEDICATION PO; +KLOR-CON 1010 MEQ PO; +PRISTIQ100 MG PO; +SPIRONOLACTONE25 MG PO
[2020-04-28 04:53] LABS: ABSOLUTE BASOPHILS 0.1 thou/uL (0.0-0.2); ABSOLUTE EOSINOPHILS 0.6 thou/uL (0.0-0.7); ABSOLUTE LYMPHOCYTES 0.5 thou/uL (0.8-5.3); ABSOLUTE MONOCYTES 0.8 thou/uL (0.0-1.2); ABSOLUTE NEUTROPHILS 6.6 thou/uL (1.6-8.1); EOSINOPHILS 6.8 %; HEMATOCRIT 34.7 % (37.0-47.0); HEMOGLOBIN 11.6 gm/dL (12.0-15.0); LYMPHOCYTES 5.8 %; MCH 27.6 pg (26.0-34.0); MCHC 33.4 g/dL (28.0-37.0); MCV 82.7 fL (80.0-100.0); MPV 8.1 fl. (7.2-11.1); NUCLEATED RBCS 0 /100WBC; PLATELET COUNT* 204 thou/uL (150-400); POLYS 77.4 %; RBC 4.19 mil/uL (4.20-5.00); RDW-CV 15.9 % (10.5-14.5); WBC 8.5 thou/uL (4.0-11.0)
[2020-04-28 05:01] LABS: CALCIUM 11.3 mg/dL (8.5-10.1); CREATININE 2.5 mg/dL (0.6-1.3); INR 1.1; POTASSIUM 3.6 mmol/L (3.5-5.1); PROTIME 11.3 Seconds (9.20-11.50)
[2020-04-28 05:05] LABS: ALBUMIN 3.3 g/dL (3.4-5.0); MAGNESIUM 1.8 mg/dL (1.8-2.4); TOTAL BILIRUBIN 0.2 mg/dL (<0.1-1.0)
[2020-04-28 05:28] LABS: URINE BILIRUBIN NEGATIVE (Negative); URINE BLOOD TRACE (Negative); URINE CLARITY CLEAR; URINE COLOR YELLOW; URINE GLUCOSE-RANDOM NEGATIVE (Negative); URINE KETONES NEGATIVE (Negative); URINE LEUKOCYTES-REFLEX 1+ (Negative); URINE NITRITE-REFLEX NEGATIVE (Negative); URINE PROTEIN NEGATIVE (Negative); URINE SPECIFIC GRAVITY 1.015 (1.005-1.030); URINE UROBILINOGEN 0.2 E.U./dl (0.2-1.0)
[2020-04-28 05:57] LABS: BACTERIA-REFLEX >30 Many /HPF (None Seen); CASTS None Seen /LPF (None Seen); CRYSTALS None Seen /LPF (None Seen); MUCUS 4-6 Moderate strn/LPF (None Seen); SQUAMOUS 0-3 Few /LPF (0-3); URINE RBC 3-10 Few /HPF (0-2); WBC CLUMPS Few (None Seen)
[2020-04-28 10:47] VITALS: BP 145/88
--- NOTE | 2020-04-28 11:52 | EKG ---
[place] [address] ELECTROCARDIOGRAM REPORT Name: KIMANI SAWYER Room: [address] ADM IN ..#: [id number] Admission: 04/28/20 Attend Phys: Marshall Tony, Discharge: Date of : 40 Date of Service: 04/28/20 0437 Report #: [id number] THIS REPORT FOR: //name// [facility] ED Test Date: 2020-04-28 Test Time: 04:37:10 Pat Name: KIMANI SAWYER Department: Room: [facility] Gender: F Bindery Manager: MR : 1940 Requested By: Cathy Pollack Order Number: [id number] MD: Drew Alvarez Measurements Intervals [place] Rate: 70 P: 0 [place]: 129 QRS: 3 QRSD: 123 T: 170 QT: 386 QTc: 417 Interpretive Statements Sinus rhythm Left bundle branch block Compared to ECG 01/06/2019 19:10:28 Left bundle-branch block now present Atrial fibrillation no longer present Electronically Signed On 04-28-2020 11:52:27 CDT by Drew Alvarez [email or web address] <ELECTRONICALLY SIGNED> By: Drew Alvarez MD, [facility] 04/28/20 1152 0437 0437 Drew Alvarez MD, [facility] /EPI
[2020-04-28 17:11] VITALS: BP 170/88
[2020-04-28 19:50] VITALS: BP 154/61
[2020-04-29 00:52] VITALS: BP 154/78
[2020-04-29 04:00] VITALS: BP 171/83
[2020-04-29 05:20] LABS: ABSOLUTE BASOPHILS 0.1 thou/uL (0.0-0.2); ABSOLUTE EOSINOPHILS 0.3 thou/uL (0.0-0.7); ABSOLUTE LYMPHOCYTES 0.4 thou/uL (0.8-5.3); ABSOLUTE MONOCYTES 0.6 thou/uL (0.0-1.2); ABSOLUTE NEUTROPHILS 6.7 thou/uL (1.6-8.1); BASOPHILS 0.8 %; EOSINOPHILS 3.9 %; HEMATOCRIT 32.3 % (37.0-47.0); HEMOGLOBIN 10.8 gm/dL (12.0-15.0); LYMPHOCYTES 5.3 %; MCH 27.6 pg (26.0-34.0); MCHC 33.5 g/dL (28.0-37.0); MCV 82.2 fL (80.0-100.0); MONOCYTES 7.8 %; MPV 8.8 fl. (7.2-11.1); NUCLEATED RBCS 0 /100WBC; PLATELET COUNT* 198 thou/uL (150-400); POLYS 82.2 %; RBC 3.93 mil/uL (4.20-5.00); RDW-CV 15.6 % (10.5-14.5); WBC 8.1 thou/uL (4.0-11.0)
[2020-04-29 05:34] LABS: CREATININE 2.2 mg/dL (0.6-1.3); POTASSIUM 3.7 mmol/L (3.5-5.1)
[2020-04-29 08:00] VITALS: BP 178/93
[2020-04-29 12:12] VITALS: BP 185/106
--- NOTE | 2020-04-29 12:46 | 2DMMODE ---
[place] [address] 2 D/M-MODE ECHOCARDIOGRAM Name: KIMANI SAWYER Tyler Room: [address] IN [facility]#: [id number] Admission: 04/28/20 Attend Phys: Marshall Tony, Discharge: Date of : 40 Date of Service: 04/29/20 1246 Report #: [id number] THIS REPORT FOR: cc: Dayne Mendoza MD, Richard K. MD Blick, David R. MD [facility] ~ APPROVED REPORT Study performed: 04/29/2020 10:56:32 EXAM: Comprehensive 2D, Doppler, and color-flow Echocardiogram Patient Location: In-Patient Room #: [facility] Status: routine BSA: 1.88 HR: 89 bpm BP: 178/93 mmHg Rhythm: NSR Other Information Study Quality: Fair Indications Syncope 2D Dimensions IVSd: 17.29 (7-11mm) LVOT Diam: 21.38 (18-24mm) LVDd: 48.34 mm PWd: 10.67 (7-11mm) Ascending Ao: 32.70 (22-36mm) LVDs: 40.62 (25-40mm) Aortic Root: 32.58 mm Volumes Left Atrial Volume (Systole) LA ESV Index: 65.60 mL/m2 Aortic Valve AoV Peak Sammy.: 1.30 m/s AO Peak Gr.: 6.71 mmHg LVOT Max P.38 mmHg AO Mean Gr.: 3.48 mmHg LVOT Mean P.36 mmHg LVOT Max V: 0.92 m/s AO V2 VTI: 20.59 cm LVOT Mean V: 0.52 m/s LEONIDES (VTI): 2.80 cm2 LVOT V1 VTI: 16.05 [place] [address] 2 D/M-MODE ECHOCARDIOGRAM Name: KIMANI SAWYER Room: [address] IN [facility]#: [id number] Admission: 04/28/20 Attend Phys: Marshall Tony, Discharge: Date of : 40 Date of Service: 04/29/20 1246 Report #: [id number] Mitral Valve MV Mean Gr.: 3.45 mmHg Pulmonary Valve PV Peak Sammy.: 0.84 m/s PV Peak Gr.: 2.79 mmHg Left Ventricle The left ventricle is normal size. There is global hypokinesis of the left ventricle. Moderate septal hypertrophy is present. Left ventricular systolic function is moderately decreased. LVEF is 40-45%. Grade I - abnormal relaxation pattern. Right Ventricle The right ventricle is normal size. The right ventricular systolic function is normal. Atria Left atrium is severely dilated. The right atrium size is normal. Aortic Valve Mild aortic valve sclerosis. Trace aortic regurgitation. There is no aortic valvular stenosis. Mitral Valve There is mitral annular calcification. The mitral valve is normal in structure. Trace mitral regurgitation. No evidence of mitral valve stenosis. Tricuspid Valve The tricuspid valve is normal in structure. Trace tricuspid regurgitation. Unable to assess PA pressure. Pulmonic Valve The pulmonary valve is normal in structure. Mild pulmonic regurgitation. Great Vessels The aortic root is normal in size. IVC is normal in size and collapses >50% with inspiration. Pericardium There is no pericardial effusion. <Conclusion> LVEF is 40-45%. [place] [address] 2 D/M-MODE ECHOCARDIOGRAM Name: KIMANI SAWYER Tyler Room: [address] IN [facility].#: [id number] Admission: 04/28/20 Attend Phys: Marshall Tony, Discharge: Date of : 40 Date of Service: 04/29/20 1246 Report #: [id number] Left atrium is severely dilated. Mild aortic valve sclerosis. <ELECTRONICALLY SIGNED> By: Drew Alvarez MD, [facility] 04/29/20 1246 1246 1246 Drew Alvarez MD, FACC /INF
[2020-04-29 17:17] VITALS: BP 142/76
[2020-04-29 20:20] VITALS: BP 165/88
[2020-04-30] VITALS (7 sets, daily range): BP systolic 167–184; BP diastolic 79–118
[2020-04-30 08:57] LABS: HEMATOCRIT 34.1 % (37.0-47.0); HEMOGLOBIN 11.3 gm/dL (12.0-15.0); MCH 26.9 pg (26.0-34.0); MCHC 33.1 g/dL (28.0-37.0); MCV 81.1 fL (80.0-100.0); MPV 8.1 fl. (7.2-11.1); NUCLEATED RBCS 0 /100WBC; PLATELET COUNT* 218 thou/uL (150-400); RDW-CV 15.7 % (10.5-14.5); WBC 11.9 thou/uL (4.0-11.0)
[2020-04-30 09:04] LABS: CALCIUM 10.3 mg/dL (8.5-10.1); POTASSIUM 3.6 mmol/L (3.5-5.1)
[2020-04-30 09:52] LABS: CALCIUM 9.8 mg/dL (8.5-10.1); CREATININE 1.9 mg/dL (0.6-1.3); PHOSPHORUS* 2.3 mg/dL (2.5-4.9)
[2020-04-30 10:06] LABS: ABSOLUTE EOSINOPHILS 0.4 thou/uL (0.0-0.7); ABSOLUTE MONOCYTES 0.4 thou/uL (0.0-1.2); ABSOLUTE NEUTROPHILS 10.2 thou/uL (1.6-8.1); PLATELET ESTIMATE ADEQUATE
[2020-04-30] MEDS ORDERED: DILTIAZEM 24HR180 M1 PO (15:48)
[2020-04-30] MEDS ORDERED: SPIRONOLACTONE25 MG PO (15:48)
[2020-04-30] MEDS ORDERED: CEFUROXIME500 MG PO (15:50)
[2020-05-01 02:06] LABS: GLYCOHEMOGLOBIN (HGB A1C) 5.8 % (4.8-5.6)
== END 2020-04-30 17:00 | DRG 314 ==
LOC: M.ERS 04:26 → M.ORTHSURG 08:21 → M.2W 08:21 → M.TBA-ER 08:21 → M.2W 10:42 → M.ORTHSURG 04-30 03:28
PROVIDERS: Emergency Medicine; ADMIT Internal Medicine; ATTEND Internal Medicine
DX: I95.9 Hypotension, unspecified (principal); G93.41 Metabolic encephalopathy; N17.0 Acute kidney failure with tubular necrosis; J96.10 Chronic respiratory failure, unspecified whether with hypoxia or hypercapnia; I13.0 Hypertensive heart and chronic kidney disease with heart failure and stage 1 through stage 4 chronic kidney disease, or unspecified chronic kidney disease; N30.01 Acute cystitis with hematuria; E11.649 Type 2 diabetes mellitus with hypoglycemia without coma; K76.89 Other specified diseases of liver; I71.4 Abdominal aortic aneurysm, without rupture; M48.061 Spinal stenosis, lumbar region without neurogenic claudication; M47.816 Spondylosis without myelopathy or radiculopathy, lumbar region; E11.22 Type 2 diabetes mellitus with diabetic chronic kidney disease; N18.3 Chronic kidney disease, stage 3 (moderate); E78.00 Pure hypercholesterolemia, unspecified; F32.9 Major depressive disorder, single episode, unspecified; F41.9 Anxiety disorder, unspecified; J43.9 Emphysema, unspecified; I50.9 Heart failure, unspecified; E83.52 Hypercalcemia; Z20.828 Contact with and (suspected) exposure to other viral communicable diseases; Z90.49 Acquired absence of other specified parts of digestive tract; Z90.710 Acquired absence of both cervix and uterus; Z79.84 Long term (current) use of oral hypoglycemic drugs; Z79.899 Other long term (current) drug therapy; Z88.8 Allergy status to other drugs, medicaments and biological substances; Z87.891 Personal history of nicotine dependence

== ENCOUNTER 2020-08-20 08:52 | Emergency (ER) | payer MEDICARE, OTHER ==
[~2020-08-20] VITALS: Ht 167.6 cm; Wt 78.7 kg
[~2020-08-20 08:52] MED LIST changes: +CEFUROXIME500 MG PO; +DILTIAZEM 24HR180 M1 PO
[2020-08-20] MEDS ORDERED: HUMALOG100 UNIT/1 SUBQ (09:04)
[2020-08-20 09:16] LABS: ABSOLUTE BASOPHILS 0.1 thou/uL (0.0-0.2); ABSOLUTE EOSINOPHILS 0.4 thou/uL (0.0-0.7); ABSOLUTE LYMPHOCYTES 0.4 thou/uL (0.8-5.3); ABSOLUTE MONOCYTES 0.5 thou/uL (0.0-1.2); ABSOLUTE NEUTROPHILS 6.9 thou/uL (1.6-8.1); BASOPHILS 0.7 %; EOSINOPHILS 4.3 %; HEMATOCRIT 28.6 % (37.0-47.0); HEMOGLOBIN 9.1 gm/dL (12.0-15.0); LYMPHOCYTES 4.8 %; MCHC 31.7 g/dL (28.0-37.0); MCV 75.8 fL (80.0-100.0); MONOCYTES 6.6 %; MPV 7.5 fl. (7.2-11.1); NUCLEATED RBCS 0 /100WBC; PLATELET COUNT* 286 thou/uL (150-400); POLYS 83.6 %; RBC 3.77 mil/uL (4.20-5.00); WBC 8.3 thou/uL (4.0-11.0)
[2020-08-20 09:29] LABS: CALCIUM 9.4 mg/dL (8.5-10.1); CREATININE 1.8 mg/dL (0.6-1.3); POTASSIUM 4.6 mmol/L (3.5-5.1)
[2020-08-20 09:33] LABS: ALBUMIN 3.3 g/dL (3.4-5.0); TOTAL BILIRUBIN 0.3 mg/dL (<0.1-1.0); TOTAL PROTEIN 7.4 g/dL (6.4-8.2)
[2020-08-20 10:12] LABS: URINE BILIRUBIN NEGATIVE (Negative); URINE BLOOD NEGATIVE (Negative); URINE CLARITY CLEAR; URINE COLOR YELLOW; URINE GLUCOSE-RANDOM NEGATIVE (Negative); URINE KETONES NEGATIVE (Negative); URINE LEUKOCYTES-REFLEX NEGATIVE (Negative); URINE NITRITE-REFLEX NEGATIVE (Negative); URINE PROTEIN NEGATIVE (Negative); URINE UROBILINOGEN 0.2 E.U./dl (0.2-1.0)
[2020-08-20 10:15] LABS: PROTIME 11.1 Seconds (9.20-11.50)
[2020-08-20 11:01] VITALS: BP 136/72
--- NOTE | 2020-08-20 16:57 | EKG ---
[place] [address] ELECTROCARDIOGRAM REPORT Name: KIMANI SAWYER Room: [facility]#: [id number] Admission: 08/20/20 Attend Phys: Discharge: 08/20/20 Date of : 40 Date of Service: 08/20/20 0909 Report #: [id number] THIS REPORT FOR: //name// [facility] ED Test Date: 2020-08-20 Test Time: 09:09:57 Pat Name: KIMANI SAWYER Department: Room: Gender: Environmental Lawyer: : 1940 Requested By: Abhilash Quinonez Order Number: [id number] MD: Krish Sorenson Measurements Intervals [place] Rate: 70 P: 31 [place]: 198 QRS: -12 QRSD: 116 T: 166 QT: 396 QTc: 428 Interpretive Statements Sinus rhythm Multiple ventricular premature complexes Incomplete left bundle branch block Repol abnrm, severe global ischemia (LM/MVD) Compared to ECG 04/28/2020 04:37:10 Ventricular premature complex(es) now present Early repolarization now present Possible ischemia now suggested Electronically Signed On 08-20-2020 16:57:36 CREDIT ADMINISTRATOR by Krish Sorenson [email or web address] <ELECTRONICALLY SIGNED> By: Krish Sorenson MD, FACC 08/20/20 1657 8 Krish Sorenson MD, FAC /EPI
== END 2020-08-20 11:26 | disposition home or self-care (01) ==
LOC: M.ERS 08:52
PROVIDERS: Family Medicine
DX: R10.11 Right upper quadrant pain (principal); Z20.828 Contact with and (suspected) exposure to other viral communicable diseases; R07.89 Other chest pain; I13.0 Hypertensive heart and chronic kidney disease with heart failure and stage 1 through stage 4 chronic kidney disease, or unspecified chronic kidney disease; N18.30 Chronic kidney disease, stage 3 unspecified; I50.9 Heart failure, unspecified; E78.00 Pure hypercholesterolemia, unspecified; F17.210 Nicotine dependence, cigarettes, uncomplicated; Z88.8 Allergy status to other drugs, medicaments and biological substances; Z88.6 Allergy status to analgesic agent; Z79.82 Long term (current) use of aspirin; Z79.899 Other long term (current) drug therapy; Z90.710 Acquired absence of both cervix and uterus; Z98.890 Other specified postprocedural states